=== PATIENT | female | born 2005 | race Caucasian/White ===

== ENCOUNTER 2025-08-10 20:33 | Emergency (ER) | payer OTHER, SELFPAY ==
--- OUTSIDE RECORDS SUMMARY | 2022-02-09 07:31 | XMS_ITS | Continuity of Care Document ---
Author Organization [facility] Address [address] [address] [place] [address] Care Team Providers Care Psychological Science Professor Name Role Phone [place], [place] Unavailable Unav ailable Procedures Procedure Date Ugi En Colono Advance Directives Directive Yes / No Effective Date File Name No Information Encounters Encounter Description Practice Location Reason(s) For Visit Diagnoses Date Provider Providers Copied on Encounter [facility], [address] [address], [place], [place], [id number], [facility] No Information [facility]. [address] [address], [place], [place], [id number], . tel:[phone] Referring Provider: Aurelio Smith MD, [address] [facility] [address], [place], [address] . tel:[phone] Family History Family Member Type Diagnosis Age At Onset No Information Payers Payer name Insurance type Covered constitution party ID Authoriza tion(s) No Information Social History Type Description Quantity Date Captured Comments Sex Female Smoking Status No Information Chief Complaint And Reason For Visit No Information Reason For Referral Reason For Referral No Information History Of Present Illness Encounter Date Complaint History Of Prese nt Illness No Information Functional Status Date Functional Assessmen t No Information Instructions Date Instruction Additional Infor mation No Information Assessments Type Assessment Date No Information Patient Care Teams Name Effective Dates (start - stop) Status Members No Information
--- OUTSIDE RECORDS SUMMARY | 2025-08-10 07:15 | XMS_ITS | Continuity of Care Document ---
Author Organization [facility] Address [address] [address] [place] [address] Phone Care Team Providers Care De Icer Installer Name Role Phone Arielle Massey Unavailable Unavailabl e Allergies, Adverse Reactions, Alerts Substance Reaction Status Criticality adhesive tape Rash Active No Information latex ItchingItching Active No Informatio n grass pollen Nasal congestion(severe) Active No Information Medications Medication Instructions Dosage Effective Dates (start - stop) Status Comments prednisone 20 mg tablet take 1 tablet by oral route the day prior and day of your Stelara injection - Active ondansetron HCl 4 mg tablet take 1 tablet by oral route every 8 hours as needed as needed for nausea 4 MG - Active Wezlana 90 mg/mL subcutaneous syringe inject 1 milliliter by subcutaneous route every 8 weeks 90 MG - Active ICD 10: K50.80. Biosimilar per insurance aspirin 81 mg tablet take 1 tablet by oral route every day 81 MG - Active nabumetone 500 mg tablet take 1 tablet by oral route 2 times every day 500 MG - Active magnesium 200 mg tablet take 1 capsule b y oral route every day 1 capsule - Active hydroxychloroquine 200 mg tablet take 1.5 tablet by oral route every day 300 MG - Active Claritin 10 mg tablet Take Claritin 10mg day before and day of infusion - Active Tylenol 325 mg tablet Take Tylenol 650mg PO half hour before infusion - Active Slow Release Iron 140 mg (45 mg iron) tablet,extended release take 1 tablet by oral route 2 times every day - Active Procedures Procedure Date Routine Serum Collection Offic/outpt E&m Estab Moderate Venofer Iv Infus Therap/dx-by Phys; To Iv Infus Therap/dx-by Phys; To Venofer Venofer Iv Infus Therap/dx-by Phys; To Iv Infus Therap/dx-by Phys; To Venofer Iv Infus Therap/dx-by Phys; To Venofer Routine Serum Collection Ugi Endo; W/bx 1/mx Level Iv-surg Path Gross/micro Esophagoscopy; Dx (separt Proc Offic/outpt E&m Estab Moderate Routine Serum Collection Routine Serum Collection Therap/dx Inj; Subq/im Colonoscopy Flex; W/bx 1/mx Level Iv-surg Path Gross/micro Offic/outpt E&m Estab Mod-hi 2 24 Routine Serum Collection Offic/outpt E&m Estab Low-mod Routine Serum Collection Offic/outpt E&m Estab Mod-hi 4 24 Stelara Infusion Iv Infus Therap/dx-by Phys; To 24 Routine Serum Collection Offic/outpt E&m Estab Mod-hi 2 24 Avsola IV Infusion Up To 1 Hour Avsola IV Infusion Up To 1 Hour Routine Serum Collection Avsola IV Infusion Up To 1 Hour Avsola IV Infusion Up To 1 Hour Routine Serum Collection Avsola IV Infusion Up To 1 Hour Routine Serum Collection Avsola IV Infusion Up To 1 Hour Routine Serum Collection Established Level 5 Routine Serum Collection Offic/outpt E&m Estab Mod-hi 2 23 Inflectra 10 mg IV Infusion Up To 1 Hour Methylpred Na Succinate-40 Mg 3 Each Add Seq IV Push, Non Chem Routine Serum Collection Subsqt Hosp-da E&m Minr Compl 3 Init Hosp-da E&m Mod Severity 3 Inflectra 10 mg IV Infusion Up To 1 Hour Routine Serum Collection Established Level 5 Init Hosp-da E&m Mod Severity 3 Subsqt Hosp-da E&m Sig Compl 3 Routine Serum Collection Inflectra 10 mg IV Infusion Up To 1 Hour Routine Serum Collection Routine Serum Collection IV Infusion Up To 1 Hour Inflectra 10 mg Routine Serum Collection Colonoscopy Flex; W/bx 1/mx Level Iv-surg Path Gross/micro Routine Serum Collection Routine Serum Collection Iv Infus Therap/dx-by Phys; To 22 Venofer Iv Infus Therap/dx-by Phys; To Venofer IV Infusion Up To 1 Hour Each Additional Hour Inflectra 10 mg Routine Serum Collection Iv Infus Therap/dx-by Phys; To Venofer Routine Serum Collection Routine Serum Collection Init Hosp-da E&m Mod Severity IV Infusion Up To 1 Hour Each Additional Hour Inflectra 10 mg IV Infusion Up To 1 Hour Each Additional Hour Inflectra 10 mg Established Level 5 Colonoscopy Flex; W/bx 1/mx Ugi Endo; W/bx 1/mx Level Iv-surg Path Gross/micro Special Stains; Grp I Microorg Offic/outpt E&m Estab Mod-hi 2 Advance Directives Directive Yes / No Effective Date File Name No Information Encounters Encounter Description Practice Location Reason(s) For Visit Diagnoses Date Provider Providers Copied on Encounter [facility] KASHMIR CHEATHAM [address] [address], [facility] [place], [id number], [place] tel:[phone] [facility] Crohn's disease of both small and large intestine without complications 5 Yariel Guzmán. [address] [facility], [address], [id number], [place]. tel:[phone] Referring Provider: Referral Self, USE FOR SELF REFERRALS. [facility] [place] [address] [address], [place], [id number], [place] tel:[phone] [facility] Abnormal MRI, pelvis 5 Sabrina Najera. [address] [facility], [facility] [address], [id number], [place]. tel:[phone] Offic/outpt E&m Estab Moderate [facility], [address] [address], [facility] [place], [address], [place] tel:[phone] [facility] GI Symptoms or Concerns (chief complaint) Crohn's disease of both small and large intestine without complications NauseaIron deficiency anemia, unspecified Nov-0 5 Yariel Guzmán. [address] [place] [address], [id number], [place]. tel:[phone] Referring Provider: Referral Self, USE FOR SELF REFERRALS. [facility], [address] [address], [facility] [place], [address], [place] tel:[phone] [facility] Crohn's disease of both small and large intestine without complications Oct-3 5 Tati Cody. [address] [place] [address], [id number], [place]. tel:[phone] [facility], [address] [address], [facility] [place], [address], [place] tel:[phone] [facility] [place] Crohn's disease of both small and large intestine without complications Oct-3 5 Patricio Ramos. [address] [place] [address], [id number], [place]. tel:[phone] Referring Provider: Montana Sanchez MD, [address] [place] [address], [address]. tel:[phone] [facility], [address] [address], [facility] [place], [address], [place] tel:[phone] [facility] Crohn's disease of both small and large intestine without complications Jun-2 5 Rosina Pritchard. [address] [place] [address], [id number], [place]. tel:[phone] Referring Provider: Montana Sanchez MD, [address] [place] [address], [address]. tel:[phone] [facility], [address] [address], [place], [address], [place] tel:[phone] [facility] [place] Crohn's disease of both small and large intestine without complications Oct-2 8 5 Eliza OCHOA Zack. [address] [facility], [facility] [address], [place], [place], [address], [place]. tel:[phone] Referring Provider: Montana Sanchez MD, [address] [facility] [address], [place], [address]. tel:[phone] [facility], [address] [address], [place], [address], [place] tel:[phone] [facility] [place] Crohn's disease of both small and large intestine without complications Jun- 5 Rick Doherty. [address] [facility], [facility] [address], [id number], [place]. tel:[phone] Referring Provider: Montana Sanchez MD, [address] [facility] [address], [place], [address]. tel:[phone] [facility], [address] [address], [place], [address], [place] tel:[phone] [facility] [place] Crohn's disease of both small and large intestine without complications Oct- 0 5 Tati Cody. [address] [facility], [facility] [address], [place], [address], [place]. tel:[phone] [facility], [address] [address], [place], [address], [place] tel:[phone] [facility] No Information Jun- 5 Tati Cody. [address] [facility], [facility] [address], [place], [id number], [place]. tel:[phone] [facility], [address] [address], [place], [address], [place] tel:[phone] [facility] Crohn's disease of both small and large intestine without complications Oct- 5 Joshua Laura. [address] [facility], [facility] [address], [place], [place], [address], [place]. tel:[phone] Referring Provider: Montana Sanchez MD, [address] [facility] [address], [place], [address]. tel:[phone] [facility], [address] [address], [place], [address], [place] tel:[phone] [facility] Crohn's disease of both small and lg int w/o complications Jun- 5 Joanne Mcfadden. [address] [facility], [facility] [address], [place], [address], [place]. tel:[phone] [facility], [address] [address], [place], [address], [place] tel:[phone] [facility] Crohn's disease of both small and lg int w/o complications 5 Tati Cody. [address] [facility], [facility] [address], [address], [place]. tel:[phone] [facility], [address] [address], [place], [address], [place] tel:[phone] [facility] Crohn's disease of both small and lg int w/o complications 5 Tati Cody. [address] [facility], [facility] [address], [place], [address], [place]. tel:[phone] Referring Provider: Referral Self, USE FOR SELF REFERRALS. [facility], [address] [address], [place], [address], [place] tel:[phone] [facility] Crohn's disease of both small and lg int w/o complications Jun- 5 Tati Cody. [address] [facility], [facility] [address], [id number], [place]. tel:[phone] Referring Provider: Referral Self, USE FOR SELF REFERRALS. [facility], [address] [address], [place], [address], [place] tel:[phone] [facility] No Information 5 Tati Cody. [address] [place] [address], [facility] [address], [place], [place], [id number], [place]. tel:[phone] [facility], [address] [address], [place], [id number], [place] tel:[phone] [facility] NauseaDyspeps iaNauseaEpiga stric pain 5 Chastity Blake. [address] [place] [address], [facility] [address], [place], [id number], [place]. tel:[phone] Fernando Daley DO. tel:[phone] lting Provider: Escobar Duffy MD, [address] [place] [address], [address]. tel:[phone] Provider: Montana Sanchez MD, [address] [place] [address], [address]. tel:[phone] [facility], [address] [address], [place], [id number], [place] tel:[phone] [facility] GI Symptoms or Concerns (chief complaint) NauseaDiarrhe a, unspecifiedDy sphagia, unspecified typeNauseaDia rrhea, unspecifiedDy sphagia, unspecified 5 Laura Boyle. [address] [place] [address], [facility] [address], [place], [place], [id number], [place]. tel:[phone] Referring Provider: Referral Self, USE FOR SELF REFERRALS. Offic/outpt E&m Estab Moderate [facility], [address] [address], [place], [id number], [place] tel:[phone] [facility] GI Symptoms or Concerns (chief complaint) Crohn's disease of both small and lg int w/o complications Diarrhea, unspecified typeNausea 5 Tati Cody. [address] [place] [address], [address], [id number], [place]. tel:[phone] Referring Provider: Referral Self, USE FOR SELF REFERRALS. [facility], [address] [address], [place], [id number], [place] tel:[phone] [facility] Crohn's disease of both small and large intestine with intestinal obstruction 5 Dionna Adamson. [address] [place] [address], [id number], [place]. tel:[phone] Referring Provider: Referral Self, USE FOR SELF REFERRALS. [facility], [address] [address], [place], [id number], [place] tel:[phone] [facility] Crohn's disease of both small and large intestine with intestinal obstruction 5 Laura Boyle. [address] [place] [address], [id number], [place]. tel:[phone] Referring Provider: Referral Self, USE FOR SELF REFERRALS. [facility], [address] [address], [place], [id number], [place] tel:[phone] [facility] Crohn's disease of both small and lg int w intestinal obst 5 Luis Wang. [address] [place] [address], [id number], [place]. tel:[phone] [facility], [address] [address], [place], [address], [place] tel:[phone] [facility] GI Symptoms or Concerns (chief complaint) Crohn's disease of both small and lg int w intestinal obstHistory of colon surgeryAphtho us ulcerRecurren t oral aphthaeOther specified postprocedura l statesNoninfe ctive gastroenterit is and colitis, unspecified 4 Laura Boyle. [address] [place] [address], [id number], [place]. tel:[phone] Referring Provider: Referral Self, USE FOR SELF REFERRALS. Offic/outpt E&m Estab Mod-hi 2 [facility] [place], [address] [address], [place], [id number], [place] tel:[phone] [facility] GI Symptoms or Concerns (chief complaint) Crohn's disease of both small and large intestine without complication 4 Luis Wang. [address] [place] [address], [id number], [place]. tel:[phone] Referring Provider: Referral Self, USE FOR SELF REFERRALS. [facility] [place], [address] [address], [place], [address], [place] tel:[phone] [facility] Crohn's disease of both small and lg int w/o complications Abnormal levels of other serum enzymes 4 Luis Wang. [facility] [address], [id number], [place]. tel:[phone] Referring Provider: Referral Self, USE FOR SELF REFERRALS. [facility] [place], [address] [address], [place], [address], [place] tel:[phone] [facility] Crohn's disease of both small and lg int w intestinal obst 4 Raul Desai. [address], [id number], [place]. tel:[phone] [facility], [address] [address], [place], [address], [place] tel:[phone] [facility] Crohn's disease of small intestine with intestinal obstructionCr ohn's disease of both small and lg int w intestinal obst 4 Saravanan Mcbride. [address], [id number], [place]. tel:[phone] [facility], [address] [address], [place], [address], [place] tel:[phone] [facility] Crohn's disease of both small and lg int w intestinal obst 4 Raul Desai. [address] [facility], [facility] [address], [place], [address], [place]. tel:[phone] [facility] [place], [address] [address], [place], [id number], [place] tel:[phone] [facility] GI Symptoms or Concerns (chief complaint) Crohn's disease of both small and lg int w intestinal obst 4 Portillo Camarillo. [address] [facility], [facility] [address], [place], [address], [place]. tel:[phone] Referring Provider: Referral Self, USE FOR SELF REFERRALS. Offic/outpt E&m Estab Low-mod [facility], [address] [address], [place], [id number], [place] tel:[phone] [facility] GI Symptoms or Concerns (chief complaint) Additional Narrative (chief complaint) Crohn's disease of both small and large intestine without complicationA dverse effect of drug, subsequent encounter 4 Raul ANAY Desai. [address], [id number], [place]. tel:[phone] Referring Provider: Referral Self, USE FOR SELF REFERRALS. [facility] [place], [address] [address], [place], [address], [place] tel:[phone] [facility] Family history of Sjogren's diseaseFamily history of lupus erythematosus 4 Saravanan Mcbride. [address] [facility], [address], [id number], [place]. tel:[phone] [facility] [place], [address] [address], [place], [address], [place] tel:[phone] [facility] Elevated alkaline phosphatase level 4 Darielaset RICKI Mcbride. [address] [facility], [address], [id number], [place]. tel:[phone] Offic/outpt E&m Estab Mod-hi 4 [facility], [address] [address], [place], [id number], [place] tel:[phone] [facility] GI Symptoms or Concerns (chief complaint) Crohn's disease of small intestine with intestinal obstruction 4 Saravanan Mcbride. [address] [facility], [facility] [address], [place], [address], [place]. tel:[phone] Referring Provider: Referral Self, USE FOR SELF REFERRALS. [facility] [place], [address] [address], [place], [address], [place] tel:[phone] [facility] No Information 4 Maulik Hawk. [address], [id number], [place]. tel:[phone] Referring Provider: Referral Self, USE FOR SELF REFERRALS. [facility] [place], [address] [address], [place], [address], [place] tel:[phone] [facility] [place] Crohn's disease of both small and lg int w intestinal obst 4 Dionna Adamson. [address] [facility], [address], [id number], [place]. tel:[phone] Offic/outpt E&m Estab Mod-hi 2 [facility] [place], [address] [address], [place], [id number], [place] tel:[phone] [facility] GI Symptoms or Concerns (chief complaint) Crohn's disease of both small and lg int w intestinal obstPsoriasis 4 Dionna Adamson. [address], [id number], [place]. tel:[phone] Referring Provider: Referral Self, USE FOR SELF REFERRALS. [facility] [place], [address] [address], [place], [address], [place] tel:[phone] [facility] Crohn's disease of both small and lg int w intestinal obst 4 Rosina Pritchard. [address], [id number], [place]. tel:[phone] Referring Provider: Referral Self, USE FOR SELF REFERRALS. [facility], [address] [address], [place], [address], [place] tel:[phone] [facility] Crohn's disease of both small and lg int w intestinal obst Dec-2 8 3 Dionna Adamson. [address], [id number], [place]. tel:[phone] [facility], [address] [address], [place], [address], [place] tel:[phone] [facility] Crohn's disease of both small and lg int w intestinal obst Dec-0 7 3 Tha Crain. [address], [id number], [place]. tel:[phone] Referring Provider: Referral Self, USE FOR SELF REFERRALS. [facility], [address] [address], [place], [address], [place] tel:[phone] [facility] Crohn's disease of both small and lg int w intestinal obst Dec-0 7 3 Luis Carey. [address], [id number], [place]. tel:[phone] Referring Provider: Referral Self, USE FOR SELF REFERRALS. [facility], [address] [address], [place], [address], [place] tel:[phone] [facility] Crohn's disease of both small and lg int w intestinal obst Nov-3 0 3 Dionna Adamson. [address] [facility] [address], [place], [address], [place]. tel:[phone] [facility], [address] [address], [place], [address], [place] tel:[phone] [facility] Crohn's disease of both small and lg int w intestinal obst Nov-2 0 3 Dionna Adamson. [address], [id number], [place]. tel:[phone] [facility], [address] [address], [place], [address], [place] tel:[phone] [facility] [place] Crohn's disease of both small and lg int w intestinal obst 3 Dionna Adamson. [address] [facility], [facility] [address], [place], [address], [place]. tel:[phone] [facility], [address] [address], [place], [address], [place] tel:[phone] [facility] Crohn's disease of both small and lg int w intestinal obst 3 Livia Malave. [address], [id number], [place]. tel:[phone] Referring Provider: Referral Self, USE FOR SELF REFERRALS. [facility], [address] [address], [place], [address], [place] tel:[phone] [facility] [place] Crohn's disease of both small and lg int w intestinal obst Jun-0 3 Dionna Adamson. [address] [facility] [address], [address], [place]. tel:[phone] [facility], [address] [address], [place], [address], [place] tel:[phone] [facility] Crohn's disease of both small and lg int w intestinal obst 3 Tha Crain. [address] [facility], [facility] [address], [place], [address], [place]. tel:[phone] Referring Provider: Referral Self, USE FOR SELF REFERRALS. [facility], [address] [address], [place], [address], [place] tel:[phone] [facility] Crohn's disease of both small and lg int w intestinal obst 3 Luis Carey. [address] [facility], [facility] [address], [place], [address], [place]. tel:[phone] Referring Provider: Referral Self, USE FOR SELF REFERRALS. [facility], [address] [address], [place], [address], [place] tel:[phone] [facility] Crohn's disease of both small and lg int w intestinal obst 3 Dionna Adamson. [address] [facility], [address], [id number], [place]. tel:[phone] [facility], [address] [address], [place], [address], [place] tel:[phone] [facility] [place] Crohn's disease of both small and lg int w intestinal obst 3 Chastity Blake. [address] [facility], [address], [id number], [place]. tel:[phone] Referring Provider: Referral Self, USE FOR SELF REFERRALS. [facility], [address] [address], [place], [address], [place] tel:[phone] [facility] Crohn's disease of both small and large intestine with intestinal obstruction 3 Luis Carey. [address] [facility], [facility] [address], [place], [address], [place]. tel:[phone] Referring Provider: Referral Self, USE FOR SELF REFERRALS. [facility], [address] [address], [place], [address], [place] tel:[phone] [facility] [place] Crohn's disease of both small and large intestine with intestinal obstruction 3 Dionna Adamson. [address] [facility], [facility] [address], [place], [address], [place]. tel:[phone] [facility], [address] [address], [place], [address], [place] tel:[phone] [facility] Crohn's disease of both small and large intestine with intestinal obstruction 3 Dionna Adamson. [address] [facility], [facility] [address], [address], [place]. tel:[phone] [facility], [address] [address], [place], [address], [place] tel:[phone] [facility] Crohn's disease of both small and lg int w intestinal obst 3 Dionna Adamson. [address] [facility], [facility] [address], [address], [place]. tel:[phone] [facility], [address] [address], [place], [address], [place] tel:[phone] [facility] Crohn's disease of both small and lg int w intestinal obst 3 Bucky Juares. [address] [facility], [address], [id number], [place]. tel:[phone] Referring Provider: Referral Self, USE FOR SELF REFERRALS. [facility], [address] [address], [place], [address], [place] tel:[phone] [facility] Crohn's disease of both small and lg int w intestinal obstCrohn's disease of small intestine w intestinal obstruction 3 Dionna Adamson. [address] [facility], [address], [id number], [place]. tel:[phone] [id number] Referring Provider: Referral Self, USE FOR SELF REFERRALS. [facility], [address] [address], [place], [address], [place] tel:[phone] [facility] Crohn's disease of both small and large intestine with intestinal obstruction 3 Dionna Adamson. [address] [facility], [facility] [address], [place], [address], [place]. tel:[phone] Established Level 5 [facility], [address] [address], [place], [address], [place] tel:[phone] [facility] GI Symptoms or Concerns (chief complaint) Crohn's disease of both small and large intestine with intestinal obstruction 3 Dionna Adamson. [address] [facility], [facility] [address], [place], [address], [place]. tel:[phone] Referring Provider: Referral Self, USE FOR SELF REFERRALS. [facility], [address] [address], [place], [id number], [place] tel:[phone] [facility] Crohn's disease of both small and lg int w intestinal obst 3 Dionna Adamson. [address] [facility], [facility] [address], [place], [address], [place]. tel:[phone] [facility], [address] [address], [place], [address], [place] tel:[phone] [facility] Crohn's disease of both small and large intestine with intestinal obstruction 3 Dionna Adamson. [address] [facility], [address], [id number], [place]. tel:[phone] [facility], [address] [address], [place], [address], [place] tel:[phone] [facility] Crohn's disease of both small and lg int w intestinal obst 3 Dionna Adamson. [address] [place] [address], [id number], [place]. tel:[phone] Offic/outpt E&m Estab Mod-hi 2 [facility], [address] [address], [place], [address], [place] tel:[phone] [facility] GI Symptoms or Concerns (chief complaint) Crohn's disease of small intestine with intestinal obstruction 3 Dionna Adamson. [address] [facility], [address], [id number], [place]. tel:[phone] Referring Provider: Referral Self, USE FOR SELF REFERRALS. [facility], [address] [address], [place], [id number], [place] tel:[phone] [facility] Crohn's disease of both small and lg int w intestinal obst 3 Bucky KAUR Mor. [address], [id number], [place]. tel:[phone] Referring Provider: Referral Self, USE FOR SELF REFERRALS. [facility], [address] [address], [place], [address], [place] tel:[phone] [facility] Crohn's disease of both small and lg int w intestinal obst 3 Luis Carey. [address], [id number], [place]. tel:[phone] Referring Provider: Referral Self, USE FOR SELF REFERRALS. [facility], [address] [address], [place], [address], [place] tel:[phone] [facility] Crohn's disease of both small and lg int w intestinal obst Nov- 3 Luis Wang. [address] [place] [address], [id number], [place]. tel:[phone] Subsqt Hosp-da E&m Minr Compl [facility], [address] [address], [place], [place], [address], [place] tel:[phone] [facility] No Information 3 Amilcar Holguin. [facility] [address], [id number], [place]. tel:[phone] Referring Provider: [place], [address] [place] [address], [address]. tel:[phone] Init Hosp-da E&m Mod Severity [facility], [address] [address], [place], [address], [place] tel:[phone] [facility] No Information 3 Raisa Rojas. [facility] [address], [address], [place]. tel:[phone] Referring Provider: Krishna Lopezrick, [address] [place], [address]. tel:[phone] [facility], [address] [address], [place], [address], [place] tel:[phone] [facility] Crohn's disease of both small and lg int w intestinal obst 3 Magdalena Pearce. [address] [facility], [address], [id number], [place]. tel:[phone] Referring Provider: Krishna Haney MD [place], [address] [place], [address]. tel:[phone] [facility], [address] [address], [place], [address], [place] tel:[phone] [facility] Crohn's disease of both small and large intestine with intestinal obstruction 3 Luis Wang. [address], [id number], [place]. tel:[phone] Referring Provider: Referral Self, USE FOR SELF REFERRALS. Established Level 5 [facility], [address] [address], [place], [address], [place] tel:[phone] [facility] GI Symptoms or Concerns (chief complaint) Crohn's disease of both small and large intestine with intestinal obstruction 3 Luis Carey. [address], [id number], [place]. tel:[phone] Referring Provider: Referral Self, USE FOR SELF REFERRALS. [facility], [address] [address], [place], [address], [place] tel:[phone] [facility] Crohn's disease of both small and large intestine with intestinal obstruction 3 Dionna Adamson. [address], [id number], [place]. tel:[phone] [facility], [address] [address], [place], [address], [place] tel:[phone] [facility] Crohn's disease of both small and lg int w intestinal obst 3 Luis Carey. [address] [facility], [address], [place], [place], [address], [place]. tel:[phone] [facility], [address] [address], [place], [place], [address], [place] tel:[phone] [facility] No Information 3 Dionna Adamson. [address] [facility], [facility] [address], [place], [address], [place]. tel:[phone] Referring Provider: Juan Diego Hall, [address], [address]. tel:[phone] [facility], [address] [address], [place], [address], [place] tel:[phone] [facility] Crohn's disease of both small and lg int w intestinal obst 3 Luis Carey. [address] [facility], [facility] [address], [place], [address], [place]. tel:[phone] Referring Provider: Referral Self, USE FOR SELF REFERRALS. [facility], [address] [address], [place], [address], [place] tel:[phone] [facility] Crohn's disease of both small and lg int w intestinal obst 3 Luis Carey. [address] [facility], [facility] [address], [place], [address], [place]. tel:[phone] [facility], [address] [address], [place], [address], [place] tel:[phone] [facility] Crohn's disease of both small and lg int w intestinal obst 2 Chastity Blake. [address] [facility], [facility] [address], [place], [address], [place]. tel:[phone] Referring Provider: Referral Self, USE FOR SELF REFERRALS. [facility], [address] [address], [place], [address], [place] tel:[phone] [facility] Crohn's disease of both small and lg int w intestinal obstCrohn's disease, unspecified, without complications 2 Luis Carey. [address] [facility], [facility] 500, [place], [place], [address], [place]. tel:[phone] Referring Provider: Referral Self, USE FOR SELF REFERRALS. [facility], [address] [address], [place], [address], [place] tel:[phone] [facility] Crohn's disease of both small and lg int w intestinal obst 2 Luis Carey. [address] [facility], [facility] [address], [place], [address], [place]. tel:[phone] [facility], [address] [address], [place], [address], [place] tel:[phone] [facility] Crohn's disease of both small and lg int w intestinal obst 2 Luis Carey. [address] [facility], [facility] [address], [place], [address], [place]. tel:[phone] Referring Provider: Referral Self, USE FOR SELF REFERRALS. [facility], [address] [address], [place], [address], [place] tel:[phone] [facility] Crohn's disease of both small and lg int w intestinal obst 2 Luis Carey. [address] [facility], [facility] [address], [place], [address], [place]. tel:[phone] [facility], [address] [address], [place], [address], [place] tel:[phone] [facility] Crohn's disease of both small and lg int w intestinal obst 2 Dionna Adamson. [address] [facility], [facility] 500, [place], [place], [address], [place]. tel:[phone] [facility], [address] [address], [place], [address], [place] tel:[phone] [facility] Crohn's disease of both small and lg int w intestinal obst Jun- 2 Cori Alfaro. [address], [id number], [place]. tel:[phone] Referring Provider: Referral Self, USE FOR SELF REFERRALS. [facility], [address] [address], [place], [address], [place] tel:[phone] [facility] Crohn's disease of both small and lg int w intestinal obst Jun- 2 Luis Carey. [address], [address], [place]. tel:[phone] Referring Provider: Referral Self, USE FOR SELF REFERRALS. [facility], [address] [address], [place], [address], [place] tel:[phone] [facility] GI Symptoms or Concerns (chief complaint) Crohn's disease of both small and lg int w intestinal obstIron deficiency anemia, unspecifiedCr ohn's disease of both small and lg int w intestinal obst Sep- 2 Luis Carey. [address], [id number], [place]. tel:[phone] Referring Provider: Referral Self, USE FOR SELF REFERRALS. [facility], [address] [address], [place], [address], [place] tel:[phone] [facility] Crohn's disease of both small and lg int w intestinal obst Sep- 2 Luis Carey. [address], [id number], [place]. tel:[phone] Referring Provider: Referral Self, USE FOR SELF REFERRALS. [facility], [address] [address], [place], [address], [place] tel:[phone] [facility] Crohn's disease of both small and lg int w intestinal obst Sep-0 2 Luis Carey. [address] [facility], [address], [id number], [place]. tel:[phone] Referring Provider: Referral Self, USE FOR SELF REFERRALS. [facility], [address] [address], [place], [address], [place] tel:[phone] [facility] Crohn's disease of both small and lg int w intestinal obst Sep-0 2 Luis Carey. [address], [id number], [place]. tel:[phone] [facility], [address] [address], [place], [address], [place] tel:[phone] [facility] Iron deficiency anemia, unspecified 2 Cori Alfaro. [address], [id number], [place]. tel:[phone] Fernando Edi DO. tel:[phone] ring Provider: Referral Self, USE FOR SELF REFERRALS. [facility], [address] [address], [place], [address], [place] tel:[phone] [facility] Crohn's disease of both small and lg int w intestinal obst Apr- 2 Luis Carey. [address], [id number], [place]. tel:[phone] Fernando Edi DO. tel:[phone] [facility], [address] [address], [place], [address], [place] tel:[phone] [facility] Iron deficiency anemia, unspecified 2 Jonh Pina. [address] [facility], [address], [address], [place]. tel:[phone] Fernando Edi DO. tel:[phone] ring Provider: Referral Self, USE FOR SELF REFERRALS. [facility], [address] [address], [place], [place], [address], [place] tel:[phone] [facility] Crohn's disease of both small and lg int w intestinal obst 2 Jonh Pina. [address] [facility], [address], [id number], [place]. tel:[phone] Fernando Daley DO. tel:[phone] ring Provider: Referral Self, USE FOR SELF REFERRALS. [facility], [address] [address], [place], [address], [place] tel:[phone] [facility] Crohn's disease of both small and lg int w intestinal obst 2 Luis Craey. [address], [id number], [place]. tel:[phone] Fernando Daley DO. tel:[phone] ring Provider: Referral Self, USE FOR SELF REFERRALS. [facility], [address] [address], [place], [address], [place] tel:[phone] [facility] Crohn's disease of both small and lg int w intestinal obst 2 Estefany Raymundo. [address], [id number], [place]. tel:[phone] [facility], [address] [address], [place], [address], [place] tel:[phone] [facility] Crohn's disease, unspecified, without complications 2 Cori Alfaro. [address] [facility], [address], [id number], [place]. tel:[phone] Fernando Daley DO. tel:[phone] ring Provider: Referral Self, USE FOR SELF REFERRALS. [facility], [address] [address], [place], [address], [place] tel:[phone] [facility] No Information 2 Luis Carey. [address] [facility], [facility] [address], [place], [address], [place]. tel:[phone] Referring Provider: Referral Self, USE FOR SELF REFERRALS. [facility], [address] [address], [place], [place], [address], [place] tel:[phone] [facility] Iron deficiency anemia, unspecified 2 Luis Carey. [address] [facility], [facility] [address], [place], [address], [place]. tel:[phone] Fernando Daley DO. tel:[phone] ring Provider: Referral Self, USE FOR SELF REFERRALS. Init Hosp-da E&m Mod Severity [facility], [address] [address], [place], [place], [address], [place] tel:[phone] [facility] Information 2 Chapincito Kay. [address] [facility], [facility] [address], [place], [address], [place]. tel:[phone] Referring Provider: Eliza Bennett, [address], [address]. tel:[phone] [facility], [address] [address], [place], [place], [address], [place] tel:[phone] [facility] Iron deficiency anemia, unspecified iron deficiency anemia type 2 Maral Deng. [address] [facility], [facility] 500, [place], [place], [address], [place]. tel:[phone] Fernando Daley DO. tel:[phone] [facility], [address] [address], [place], [place], [address], [place] tel:[phone] [facility] Crohn's disease of both small and lg int w intestinal obst 2 Magaly Kingsley. [address] [facility], [facility] [address], [place], [address], [place]. tel:[phone] Fernando Daley DO. tel:[phone] ring Provider: Referral Self, USE FOR SELF REFERRALS. [facility], [address] [address], [place], [address], [place] tel:[phone] [facility] Crohn's disease of both small and lg int w intestinal obstIron deficiency anemia, unspecified iron deficiency anemia type Billy 2 Luis Carey. [address] [facility], [facility] [address], [place], [address], [place]. tel:[phone] [facility], [address] [address], [place], [address], [place] tel:[phone] [facility] Iron deficiency anemia, unspecified iron deficiency anemia typeCrohn's disease of both small and lg int w intestinal obst 2 Luis Carey. [address] [facility], [address], [id number], [place]. tel:[phone] [facility], [address] [address], [place], [address], [place] tel:[phone] [facility] Crohn's disease of both small and lg int w intestinal obst 2 Ralph Perez. [address] [facility], [facility] [address], [place], [address], [place]. tel:[phone] Fernando Daley DO. tel:[phone] ring Provider: Referral Self, USE FOR SELF REFERRALS. [facility], [address] [address], [place], [address], [place] tel:[phone] [facility] Crohn's disease of both small and large intestine with intestinal obstruction 2 Luis Carey. [address] [facility], [facility] [address], [place], [address], [place]. tel:[phone] Established Level 5 [facility], [address] [address], [place], [address], [place] tel:[phone] [facility] GI Symptoms or Concerns (chief complaint) Crohn's disease of both small and large intestine with intestinal obstruction 2 Luis Carey. [address] [place] [address], [id number], [place]. tel:[phone] Fernando Daley DO. tel:[phone] ring Provider: Krishna Pritchard, [address] [place], [address]. tel:[phone] [facility], [address] [address], [place], [address], [place] tel:[phone] [facility] Crohn's disease of both small and large intestine with intestinal obstruction 2 No Information Fernando Daley DO. tel:[phone] [facility], [address] [address], [place], [address], [place] tel:[phone] [facility] GI Symptoms or Concerns (chief complaint) Other fecal abnormalities Abnormal weight lossAbnormal weight lossOther fecal abnormalities Crohn's disease, unspecified, without complications 2 Luis Carey. [address] [facility] [address], [place], [address], [place]. tel:[phone] Fernando Daley DO. tel:[phone] ring Provider: Krishna Pritchard, [address] [place], [address]. tel:[phone] Offic/outpt E&m Estab Mod-hi 2 [facility], [address] [address], [place], [address], [place] tel:[phone] [facility] GI Symptoms or Concerns (chief complaint) Weight lossLoose stools 2 No Information Referring Provider: Krishna Pritchard, [address] [place], [address]. tel:[phone] [facility], [address] [address], [place], [address], [place] tel:[phone] [facility] No Information 2 Adriano Portillo. [address] [facility], [address], [address], [place]. [phone] [facility], [address] [address], [place], [place], [address], [place] tel:[phone] [facility] No Information 1 Adriano Portillo. [address] [facility], [facility] [address], [place], [place], [address], [place]. [phone] Family History Family Member Type Diagnosis Age At Onset Mother Problem (finding) Alive and well Brother Problem (finding) Alive and well Brother Problem (finding) Alive and well Brother Problem (finding) Alive and well Father Problem (finding) Alive and well Immunizations Vaccine Date Status Comments SARS-COV-2 (COVID-19) vaccin e, mRNA, spike protein, LNP, preservative free, 30 mcg/0.3mL dose administered Note: [facility] bi-direct ional interface ; Source: Other Registry SARS-COV-2 (COVID-19) vaccin e, mRNA, spike protein, LNP, preservative free, 30 mcg/0.3mL dose administered Note: [facility] bi-direct ional interface ; Source: Other Registry SARS-COV-2 (COVID-19) vaccin e, mRNA, spike protein, LNP, preservative free, 30 mcg/0.3mL dose administered Note: [facility] bi-direct ional interface ; Source: Other Registry Payers Payer name Insurance type Covered constitution party ID Authoriza tion(s) [facility] [id number] Social History Type Description Quantity Date Captured Comments Alcohol Use Details Unknown Caffeine Use Details Unknown Tobacco Use Status No Information Smoking Status No Information Sex Female Chief Complaint And Reason For Visit No Information Reason For Referral Reason For Referral No Information Plan Of Treatment Date Type Action Status Goal Prevnar 20. Due on 25 due Goal Tdap. Due on due Goal Smoking status. Due on due Goal Influenza. Due on due Goal Vitamin D, 25-Hydroxy. Due o n due Goal HPV (1st). Due on due Goal Colonoscopy. Due on due Goal DEXA Bone Densit y Study. Due on due Goal HPV (2nd). Due on due Goal Dermatology - Sk in Screening. Due on due Goal HPV (3rd). Due on due Goal Smoking status. Due on due Goal Dermatology - Sk in Screening. Due on due Goal DEXA Bone Densit y Study. Due on due Goal Tdap. Due on due Goal Colonoscopy. Due on 025 due Goal Influenza. Due on due Goal HPV (3rd). Due on due Goal Prevnar 20. Due on 25 due Goal HPV (1st). Due on due Goal Vitamin D, 25-Hydroxy. Due o n due Goal HPV (2nd). Due on due Goal HPV (2nd). Due on due Goal Dermatology - Sk in Screening. Due on due Goal HPV (3rd). Due on due Goal DEXA Bone Densit y Study. Due on due Goal Colonoscopy. Due on due Goal Tdap. Due on due Goal Influenza. Due on due Goal Vitamin D, 25-Hydroxy. Due o n due Goal Prevnar 20. Due on due Goal Smoking status. Due on due Goal HPV (1st). Due on due Goal DEXA Bone Densit y Study. Due on due Goal Tdap. Due on due Goal HPV (1st). Due on due Goal Dermatology - Sk in Screening. Due on due Goal Vitamin D, 25-Hydroxy. Due o n due Goal HPV (2nd). Due on due Goal Influenza. Due on due Goal Smoking status. Due on due Goal Colonoscopy. Due on due Goal Prevnar 20. Due on due Goal HPV (3rd). Due on due Goal HPV (3rd). Due on due Goal Vitamin D, 25-Hydroxy. Due o n due Goal Prevnar 20. Due on due Goal Dermatology - Sk in Screening. Due on due Goal HPV (2nd). Due on due Goal HPV (1st). Due on due Goal Tdap. Due on due Goal Influenza. Due on due Goal DEXA Bone Densit y Study. Due on due Goal Colonoscopy. Due on due Goal Smoking status. Due on due Goal Influenza. Due on due Goal HPV (3rd). Due on due Goal Prevnar 20. Due on due Goal Colonoscopy. Due on due Goal HPV (1st). Due on due Goal Vitamin D, 25-Hydroxy. Due o n due Goal Dermatology - Sk in Screening. Due on due Goal HPV (2nd). Due on due Goal Tdap. Due on due Goal Smoking status. Due on due Goal DEXA Bone Densit y Study. Due on due Goal Dermatology - Sk in Screening. Due on due Goal Colonoscopy. Due on due Goal DEXA Bone Densit y Study. Due on due Goal HPV (1st). Due on due Goal HPV (2nd). Due on due Goal Vitamin D, 25-Hydroxy. Due o n due Goal HPV (3rd). Due on due Goal Smoking status. Due on due Goal Tdap. Due on due Goal Prevnar 20. Due on due Goal Influenza. Due on due Goal HPV (1st). Due on due Goal HPV (2nd). Due on due Goal HPV (3rd). Due on due Goal Tdap. Due on due Goal Colonoscopy. Due on due Goal Vitamin D, 25-Hydroxy. Due o n due Goal Influenza. Due on due Goal Prevnar 20. Due on due Goal Dermatology - Sk in Screening. Due on due Goal Smoking status. Due on due Goal DEXA Bone Densit y Study. Due on due Goal HPV (). Due on due Goal Smoking status. Due on due Goal Vitamin D, 25-Hydroxy. Due o n due Goal Colonoscopy. Due on due Goal Prevnar 20. Due on due Goal DEXA Bone Densit y Study. Due on due Goal Influenza. Due on due Goal Dermatology - Sk in Screening. Due on due Goal Tdap. Due on due Goal HPV (3rd). Due on due Goal HPV (2nd). Due on due Goal HPV (2nd). Due on due Goal Vitamin D, 25-Hydroxy. Due o n due Goal Prevnar 20. Due on due Goal DEXA Bone Densit y Study. Due on due Goal Smoking status. Due on due Goal Colonoscopy. Due on due Goal Dermatology - Sk in Screening. Due on due Goal Influenza. Due on due Goal Tdap. Due on due Goal HPV (3rd). Due on due Goal HPV (1st). Due on due Goal HPV (1st). Due on due Goal Vitamin D, 25-Hydroxy. Due o n due Goal Prevnar 20. Due on due Goal Dermatology - Sk in Screening. Due on due Goal Colonoscopy. Due on due Goal Tdap. Due on due Goal HPV (3rd). Due on due Goal HPV (2nd). Due on due Goal DEXA Bone Densit y Study. Due on due Goal Smoking status. Due on due Goal Tdap. Due on due Goal Vitamin D, 25-Hydroxy. Due o n due Goal Colonoscopy. Due on due Goal HPV (2nd). Due on due Goal Dermatology - Sk in Screening. Due on due Goal Prevnar 20. Due on due Goal HPV (3rd). Due on due Goal DEXA Bone Densit y Study. Due on due Goal Smoking status. Due on due Goal HPV (1st). Due on due Goal Prevnar 20. Due on due Goal HPV (2nd). Due on due Goal HPV (3rd). Due on due Goal Vitamin D, 25-Hydroxy. Due o n due Goal Tdap. Due on due Goal HPV (1st). Due on due Goal Smoking status. Due on due Goal DEXA Bone Densit y Study. Due on due Goal Colonoscopy. Due on due Goal Dermatology - Sk in Screening. Due on due Goal Smoking status. Due on due Goal HPV (1st). Due on due Goal Prevnar 20. Due on due Goal HPV (2nd). Due on due Goal Tdap. Due on due Goal Colonoscopy. Due on due Goal Dermatology - Sk in Screening. Due on due Goal HPV (3rd). Due on due Goal DEXA Bone Densit y Study. Due on due Goal Vitamin D, 25-Hydroxy. Due o n due Goal Dermatology - Sk in Screening. Due on due Goal Smoking status. Due on due Goal Vitamin D, 25-Hydroxy. Due o n due Goal Prevnar 20. Due on due Goal HPV (2nd). Due on due Goal HPV (1st). Due on due Goal Colonoscopy. Due on 025 due Goal HPV (3rd). Due on due Goal Tdap. Due on due Goal DEXA Bone Densit y Study. Due on due Goal Vitamin D, 25-Hydroxy. Due o n due Goal Dermatology - Sk in Screening. Due on due Goal HPV (2nd). Due on due Goal Prevnar 20. Due on due Goal Colonoscopy. Due on 025 due Goal HPV (1st). Due on due Goal HPV (3rd). Due on due Goal DEXA Bone Densit y Study. Due on due Goal Smoking status. Due on due Goal Tdap. Due on due Goal Dermatology - Sk in Screening. Due on due Goal DEXA Bone Densit y Study. Due on due Goal HPV (2nd). Due on due Goal HPV (3rd). Due on due Goal Vitamin D, 25-Hydroxy. Due o n due Goal Smoking status. Due on due Goal Tdap. Due on due Goal Prevnar 20. Due on due Goal HPV (1st). Due on due Goal Colonoscopy. Due on due Goal HPV (2nd). Due on due Goal Tdap. Due on due Goal DEXA Bone Densit y Study. Due on due Goal Prevnar 20. Due on due Goal HPV (1st). Due on due Goal HPV (3rd). Due on due Goal Smoking status. Due on due Goal Dermatology - Sk in Screening. Due on due Goal Vitamin D, 25-Hydroxy. Due o n due Goal Prevnar 20. Due on due Goal HPV (2nd). Due on due Goal Vitamin D, 25-Hydroxy. Due o n due Goal Tdap. Due on due Goal Dermatology - Sk in Screening. Due on due Goal HPV (3rd). Due on 4 due Goal HPV (1st). Due on due Goal Smoking status. Due on due Goal DEXA Bone Densit y Study. Due on due Goal Smoking status. Due on due Goal HPV (1st). Due on 4 due Goal HPV (2nd). Due on due Goal Colonoscopy. Due on due Goal Dermatology - Sk in Screening. Due on due Goal DEXA Bone Densit y Study. Due on due Goal HPV (3rd). Due on 4 due Goal Vitamin D, 25-Hydroxy. Due o n due Goal Tdap. Due on due Goal Prevnar 20. Due on 24 due Goal HPV (3rd). Due on 4 due Goal HPV (2nd). Due on 4 due Goal HPV (1st). Due on 4 due Goal Tdap. Due on due Goal Vitamin D, 25-Hydroxy. Due o n due Goal Dermatology - Sk in Screening. Due on due Goal Prevnar 20. Due on 24 due Goal DEXA Bone Densit y Study. Due on due Goal Smoking status. Due on due Referral Ordered: Ultrasound Pelvis Appointment date/timeframe: First Available ordered Referral Ordered: [facility]GB, Whole Blood Appointment date/timeframe: 08/16/2025 ordered Referral Ordered: referred to Rheumatology family history of lupus and Sjogren's ordered Referral Ordered: GGT Appointment date/timeframe: First Available ordered Referral Ordered: referred to Mik Fletcher MD Surgery - Pediatric Ileocecectomy. Appointment date/timeframe: 11/14/2022 ordered Referral Ordered: HGB Appointment date/timeframe: First Available ordered Referral Ordered: Infliximab Drug + Antibody Appointment date/timeframe: 05/26/2022 ordered Referral Ordered: Administer 100mg of Venofer by IV route over at least 15 minutes, every 2 weeks for 3 doses. ordered Referral Ordered: Administer Inflectra 500mg at weeks 0, 2 and 6. Infuse by IV route. ordered Referral Ordered: Colonoscopy Appointment date/timeframe: 01/26/2022 ordered Referral Ordered: EGD Appointment date/timeframe: 01/26/2022 ordered Appointment Jaclyn Kennedy BOOKED Future Order: Lab Order Ustekinu mab And Anti-Ustekinumab Ab ([id number]), Body Site: Left Antecubital Fossa, Appointment on: , Collected on: , Sent on: Sent Future Order: Lab Order Sukhwinder sharma ([id number]), Collected on: Ordered History Of Present Illness Encounter Date Complaint History Of Prese nt Illness GI Symptoms or Concerns This is a 19-year-old female with Crohn's ileocolitis diagnosed in 2021, status post ileocecectomy in 2022 iron deficiency anemia, currently on Stelara every 8 weeks presenting for evaluation of nausea.Patient reports she has been struggling with nausea intermittently for approximately 6 to 8 months. Has been progressing as of late. Her nausea tends to come on after meals. She does not typically throw up. She has been limiting her oral intake as a result and notes some unintentional weight loss. She did try Zofran which does help her nausea. She denies any right upper quadrant abdominal pain. LFTs have been normal as of 06/29/2025. Celiac serology negative. No clear infectious symptoms such as fever, chills. She does tend towards having loose stool since her ileocecectomy in 2022.She did undergo an upper endoscopy for further evaluation. Initial attempt at EGD on 04/16/2025 had to be canceled due to retained food in the stomach. She reports that she was fasting for 12 hours before that exam. Repeat EGD the next day showing normal esophagus, normal stomach, normal duodenum. Duodenal and gastric biopsies were unremarkable.Patient denies significant abdominal pain but mentions occasional right lower quadrant discomfort. An MR enterography was recommended in February 2025 at her last visit but she has not completed this.IBD historyCrohn's ileocolitis in January 2022 after presenting with weight loss and diarrhea and anemia and fatigue and erythema nodosum. -- January 2022, colonoscopy showed inflammation of the terminal ileum with stenosis of the ileocecal valve as well as some inflammation in the cecum and sigmoid colon. -- May 2022, colonoscopy showed improvement in inflammation with the terminal ileum showing some slight erythema-- May 2024, colonoscopy 2 aphthous ulcers at the ileocolonic anastomosis otherwise the ileum and colon appeared normal. Biopsies of the ileum showed mild focal active ileitis and biopsy of the ileocolonic anastomosis showed nonspecific mildly active chronic ileitis and colitis but the remainder of the random colon biopsies were normal. 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 She continues on hydroxychloroquine. -- Iron deficiency anemia. Patient has been receiving IV iron infusions. GI Symptoms or Concerns GI Symptoms or Concerns Patient is a 19-year-old female who is here for follow-up of Crohn's disease. Her mother is also present at the visit. She was last seen by Dr. Felipe Smith in March 2024. She was diagnosed with Crohn's ileocolitis in January 2022 after presenting with weight loss and diarrhea and anemia and fatigue and erythema nodosum. Colonoscopy showed inflammation of the terminal ileum with stenosis of the ileocecal valve as well as some inflammation in the cecum and sigmoid colon. She was treated with infliximab starting in February 2022 and a subsequent colonoscopy in May 2022 showed improvement in inflammation with the terminal ileum showing some slight erythema. In early 2022 she was hospitalized at [facility] with a small bowel obstruction secondary to ileitis and had an ileocecectomy in October 2022. She reports she has had diarrhea/loose stools since her surgery. Remicade was resumed postoperatively but she developed skin rashes and alopecia in June 2023 that was thought secondary to a drug-induced lupus so infliximab was discontinued in early 2023. She then started Stelara in October 2023. She had some facial swelling and some throat symptoms after the Stelara induction so has been maintained on premeds with 20 mg prednisone and Claritin prior to Stelara injections. She reports she still continues to have 2-5 watery bowel movements per day as well as intermittent nausea and occasional right lower quadrant abdominal pain. She denies any vomiting or rectal bleeding or weight loss or rectal urgency. She has not liked taking colestipol because it is difficult for her to separate the colestipol from her other medications. She has not tried any Imodium for her diarrhea. I reviewed her labs from December 19, 2024 including a CBC and LFTs that were significant for a total bilirubin of 1.3, and AST of 81, and ALT of 79. She reports that she had recent repeat LFTs that were back to normal. Her vitamin D level was normal in March 2024. Vitamin B12 level was normal in November 2023. A TSH was normal in November 2023. She had a colonoscopy in May 2024 and there were 2 aphthous ulcers at the ileocolonic anastomosis otherwise the ileum and colon appeared normal. Biopsies of the ileum showed mild focal active ileitis and biopsy of the ileocolonic anastomosis showed nonspecific mildly active chronic ileitis and colitis but the remainder of the random colon biopsies were normal. Patient has CT scan of the abdomen and pelvis in March 2023 that did not show any evidence of active bowel inflammation. Patient reports that her bookmobile librarian plans on discontinuing azathioprine 50 mg daily soon and they are also decreasing her hydroxychloroquine dose and they are planning on starting her on olumiant for her alopecia. This appears to be a Prem inhibitor. GI Symptoms or Concerns GI Symptoms or Concerns Jaclyn is a 18-year-old female, who is seen in the clinic today for followup of Crohn's ileocolitis. She was last seen in the clinic for this problem by Rae Coe NP on December 13, 2023. Please refer to that note for additional details.Jaclyn was diagnosed with Crohn's ileocolitis in January 2022 after presenting with weight loss, diarrhea, anemia, fatigue, erythema nodosum. Colonoscopy had shown inflammation in the terminal ileum with stenosis of the IC valve as well as some inflammation in the cecum and sigmoid colon. She was treated with infliximab starting February 2022 and subsequent colonoscopy in May 2022 did result in improvement in inflammation with the terminal ileum appearing normal/only slightly erythematous.However, in early 2022, she was hospitalized at [facility] with a small bowel obstruction secondary to ileitis and underwent an ileocecectomy in October 2022. Remicade infusions were resumed postoperatively, but unfortunately, she deve GI Symptoms or Concerns GI Symptoms or Concerns Additional Narrative This is a samara joshi 18-year-old female with ileocolonic Crohn's disease who presents today for her Stelara injection teaching visit. She was previously on infliximab but developed a rash and therefore it was discontinued. the patient received her 1st dose of Stelara via infusion on October 30. There was concern for possible reaction with scratchy sensation in her throat. She presented to an emergency room and was given oral Benadryl and observe. There was also report of her having allergy shots either the day before on the morning of her Stelara infusion. Based on these events, the patient was advised to take prednisone yesterday and today and she has been taking Claritin as well. There was a slight delay in the patient getting her Stelara injection due to a recent right ear infection. She was treated with antibiotics and reports having improvement. The patient and I reviewed guidelines for these Stelara injection. the patient was able to self administer 90 milligrams of Stelara into the right anterior thigh. She was observed directly for roughly 25 minutes and did not exhibit any sign of adverse reaction. She will be kept at the clinic for an additional hour for observation. CBC and CMP were drawn December 13, 2023. GI Symptoms or Concerns This is a 18-year-old patient I am seeing today in follow-up regarding ileal colonic Crohn's disease. Her mother is with her today. The patient was diagnosed with Crohn's disease in January of 2022 when she presented with weight loss, diarrhea, anemia. The exam showed inflammation and erythema in the ileum with stenosis of the ileocecal valve, erythema and granularity in the sigmoid. An upper endoscopy showed a normal esophagus, stomach, and duodenal. Biopsies of the ileum showed mildly active chronic ileitis consistent with Crohn's negative for dysplasia, cecal biopsy showed focal active colitis favor middle melena involvement from Crohn's, hepatic, splenic, sigmoid biopsies were normal. Esophageal, stomach, duodenal biopsies were also normal. The patient was started on infliximab in February 2022. She also required IV iron for iron deficiency anemia. A colonoscopy in May 2022 was normal with the exception of some mild erythema in the ileum.In early 2022 she was hospitalized at [facility] with abdominal pain and vomiting. A CT scan showed possible bowel obstruction and ileitis. She received IV steroids and improved. She underwent an elective ileocecectomy in October 2022. Remicade infusions continued. In approximately June 2023 the patient developed dermatitis involving her hands, scalp. As well as alopecia. It was felt that this is possibly due to infliximab, this was a decision in collaboration with our estimator and drafter. She did receive oral steroids in late 2022 and early 2023 for her skin lesions. It was decided to switch her from infliximab to Stelara. She received her 1st infusion October 30, 2023. The patient had a reaction shortly after leaving the infusion center on October 30. Symptoms include facial swelling and a funny feeling in her throat. She went to the emergency room those records are reviewed the patient was given oral Benadryl, she was observed for approximately 12 hours and was discharged. Patient believes she had an allergy shot either the day before or the morning of her Stelara infusion, though she has not certain. In follow-up today she reports persistent dermatitis involving her arms and hands. She is receiving photo light therapy that has not helped yet. She continues to have hair loss. She feels that this may have plateaued. I have records from dermatology dated September 06, 2023: Patient was started on prednisone and fluconazole for possible fungal involvement. Office visit October 08, 2023 she was diagnosed with tinea corpus at that time an antifungal creams were recommended. A skin culture was done which showed no growth. Keflex was prescribed at that time.In regards to her GI symptoms, she is eating well, denies dysphagia. She has occasional nausea but no vomiting. She uses Zofran intermittently. She is having 3-5 loose stools daily. There is mild urgency, no bleeding, no nocturnal stools. Her weight is stable. GI Symptoms or Concerns I had a followup today with Jaclyn Mcnealler and her mother. Jaclyn is now 18 years old who was diagnosed with Crohn's ileocolitis several years ago. She was quite ill in late 2021 and had to have a resection of the strictured area and has remained on infliximab since then. Over the last year, she has done very well. Looking back over her laboratories, she has had really good laboratories and no major flare-ups that we can recall during 2022. Overall, she is stooling daily. No blood in her stool. No abdominal pain. Weight has been stable and from a GI perspective, everything is in remission.Jaclyn's biggest issue recently has been a dermatitis. She has very itchy hands. She has itchy scalp. She is having some alopecia that is forming on her head with dry flaky skin. They did see a estimator and drafter to give them steroids recently and actually had her on prednisone, which did help, but it is unclear whether she is being given the diagnosis of psoriasis or not. GI Symptoms or Concerns I had a followup today with Jaclyn Marcia and her mother. Jaclyn is now 17 years old. Her mom still is very helpful with communication because of Jaclyn's autism spectrum issues. In any event, Jaclyn was diagnosed back in December or January of 2022 with Crohn's disease. She presented with abdominal pain, weight loss, and anemia, and was found to have Crohn's of both colon and small bowel with some fibrostenotic changes in her ileum. She was started on steroids, which helped her initially and then she also got onto Remicade in February. There was some initial improvement, but she really did struggle through summer and fall with ongoing pain and also fairly significant anemia requiring iron infusions, as the biologics were still taking effect. As the year went on, it became clear that she was never quite getting into a complete remission despite being on the 10 per kilo Remicade every 8 weeks. In September, she was hospitalized at [facility] with obstruction. She did IV steroids, which did help some, but within weeks she was having symptoms again and she had an ileocecectomy completed by Dr. Mik Fletcher soon thereafter. We hope that a lot of her symptoms would improve after that. She has had less pain in that particular area, but she has continued to have a lot of nausea, a lot of pain, and some just general malaise that in retrospect has never really cleared up. Jaclyn does not feel like she is better right after her Remicade infusions. In fact, the emphasis of today's discussion was that she really feels like she is almost back where everything started last year. GI Symptoms or Concerns I had fo llowup today with Jaclyn Kennedy and her mom, Jaclyn is an 17-year-old, who was diagnosed last year with Crohn's disease. Her last office visit in September [address] Smith was conducted virtually and she had been hospitalized with acute onset of abdominal pain, bilious emesis, and a CT scan had shown ileitis and possible small bowel obstruction. There was question about a fluid collection in the area where it could represent an abscess, but the consensus was that it was more of a tight ileum with ileitis without an abscess. She responded to conservative management and IV steroids and got rest and after the follow up visit, it was clear that she would need steroid taper, but also referral to surgery for ileocecectomy. She saw Dr. Rivera the first week of October with the plan for surgery and wanted her steroids tapered down prior to the surgery itself, which was ultimately completed on November 08. The surgery itself went well with removal of the inflamed segment an GI Symptoms or Concerns Jaclyn is an 17-year-old female with fibrostenosing ileocolonic Crohn's disease who presents today in follow-up telehealth evaluation along with her parents.She was recently hospitalized at [facility] with acute onset of abdominal pain and bilious emesis. A CT scan of the abdomen was obtained that showed ileitis and possible small bowel obstruction. There was some question about a fluid collection around the area that could represent an abscess. However, on further evaluation with surgery and interventional Radiology, the consensus was that it most likely represented a tight ileum with ileitis without any abscess.She responded to conservative management with intravenous steroids and gut rest. A follow-up visit was arranged today to review findings and discuss further management.Her initial consultation was with my colleague, Heavenly Castillo, on 12/26/2021 when she presented with abdominal discomfort, loss of appetite, passage of foul smelling stools and unintentional weight loss of 35-40 lbs. Initial laboratory studies were notable for elevated sedimentation rate of 26, as well as evidence of iron deficiency anemia with a hemoglobin of 11.8, and MCV 77. Albumin was slightly low at 3.1. C-reactive protein was 0.75. She was seen by Hematology and started on iron pills 45 mg twice daily. Fecal calprotectin was elevated at 973. Fecal occult blood was positive.She underwent an upper endoscopy and colonoscopy evaluation on 02/09/2022. On colonoscopy, she was noted to have stenosed ileocecal valve and the terminal ileum could not be intubated. Biopsies were obtained and were consistent with mild active chronic ileitis with non-necrotizing granuloma failing Crohn's disease. Biopsies from the cecum also showed focal active colitis. The remainder of the colon biopsies were unremarkable. Biopsies from the esophagus, stomach, and duodenum were unremarkable as well.Following the endoscopy and colonoscopy, she was started on prednisone. An MR enterography study was obtained that was consistent with colonoscopy findings. There was thickening and hyperenhancement of the terminal ileum and distal ileum without any complications such as strictures, fistulas, or abscesses. Because of the fibrostenotic nature of her disease, she was started on Inflectra 10 milligram/kilogram per dose. As part of the disease monitoring, laboratory studies were obtained and hemoglobin was noted to be low at 6.9 after which, she was hospitalized at [facility] in March 2022. Her iron studies were also noted to be abnormal with a ferritin of 7. She was treated with intravenous Venofer that was also continued as an outpatient.A repeat colonoscopy evaluation was done on 06/01/2022. The colon was normal appearing visually. The terminal ileum was noted to be erythematous and friable. On repeat colonoscopy, the ileocecal valve could be intubated. Biopsies from the terminal ileum showed inactive chronic ileitis consistent with Crohn's disease. Colon biopsies were unremarkable.She was maintained on Inflectra 10 milligram/kilogram per dose every 8 weeks with periodic monitoring of her laboratory studies. Repeat laboratory studies in July and August 2022 were unremarkable with a hemoglobin of 12.8. Comprehensive metabolic panel was also within normal limits. Inflammatory rtjssam-U-mdtiriof protein and sedimentation rate were unremarkable. On the differential count, I had noted that there was progressive decline of her absolute neutrophil counts. Hematology was consulted and additional laboratory studies were done that were negative for anti neutrophilic cytoplasmic antibodies. Vitamin B12, folate and copper levels were unremarkable. Infliximab levels in May 2022 were therapeutic at 20 mcg/mL with undetectable antibodies. These were repeated at her most recent hospitalization and were noted to be at 31 mcg/mL (most recent infusion was on 08/22/2022). Repeat CBC at [facility] was normal. The mother also reports that Jaclyn has had symptoms of tingling/numbness on the tips of her fingers. She is aware that this could likely be secondary to Raynaud's phenomenon as her sister has similar symptoms as well.The mother reports that at the time of the discharge from the hospital, she was given a prescription for prednisone 40 mg twice daily.PAST MEDICAL HISTORY-fibrostenotic ileocolonic Crohn's diseaseFAMILY HISTORYThere is substantial autoimmune history in the family. Multiple family members have lupus. Mom has Sjogren's syndrome.PERSONAL/SOCIAL HISTORY-she lives in a nuclear household GI Symptoms or Concerns GI Symptoms or Concerns This is a followup telehealth evaluation. Jaclyn is an almost 17-1/2-year-old female who was recently diagnosed with fibrostenosing ileocolonic Crohn's disease. Her initial consultation was with my colleague, Heavenly Castillo, on 12/26/2021 when she presented with abdominal discomfort and unintentional weight loss. It appears that she had lost about 35 to 40 pounds over a span of 5 months. She also had reported loss of appetite as well as passage of small foul-smelling stools. Laboratory studies were done and showed an elevated sedimentation rate of 26, as well as evidence of iron deficiency anemia with a hemoglobin of 11.8, and MCV 77. Albumin was slightly low at 3.1. C-reactive protein was 0.75. She was seen by Hematology and started on iron pills 45 mg twice daily.Additional workup was ordered and included a fecal calprotectin that was elevated at 973. Fecal occult blood was positive.She underwent an upper endoscopy and colonoscopy evaluation. On colonoscopy, she was noted to have stenosed ileocecal valve and the terminal ileum could not be intubated. Biopsies were obtained and were consistent with mild active chronic ileitis with non-necrotizing granuloma failing Crohn's disease. Biopsies from the cecum also showed focal active colitis. The remainder of the colon biopsies were unremarkable. Biopsies from the esophagus, stomach, and duodenum were unremarkable as well.Following the endoscopy and colonoscopy, she was started on prednisone. An MR enterography study was obtained that was consistent with colonoscopy findings. There was thickening and hyperenhancement of the terminal ileum and distal ileum without any complications such as strictures, fistulas, or abscesses. Disaccharidase testing was unremarkable. Additional laboratory studies were ordered and she was noted to have normal 6-MP levels. Hepatitis B test was negative. QuantiFERON was also ordered and is currently pending.The followup visit was arranged to review the pathophysiology of Crohn's disease and long-term management.FAMILY HISTORYThere is substantial autoimmune history in the family. Multiple family members have lupus. Mom has Sjogren's syndrome. GI Symptoms or Concerns GI Symptoms or Concerns Jaclyn is 16-year-old female, presents with her mother for ongoing issues of abdominal discomfort and unintentional weight loss. She is a new patient, referred to us by Krishna Haney MD after having food sensitivities, unintentional weight loss, she does also have anxiety. She noticed in the end of 2019 that her weight had been decreasing without intentional weight loss. Family believes that she weighed upwards of 160 pounds. Today in clinic, she is 108 pounds, but also states that she lost about 35 to 40 pounds in the span of 5 months. She often will eat and not feel well. She states she does not feel like she can digest food. She often will have small foul-smelling stools. She did have some blood work done and she was also referred to Hematology, who also did additional laboratory evaluation at [facility]. She had a celiac screen that was negative, although she has had intermittent times where she eats low-gluten or gluten-free. She also had inflammatory markers that showed Functional Status Date Functional Assessmen t No Information Instructions Date Instruction Additional Infor melissa - Labs as ordered- S tool infectious studies- Continue Stelara 90 mg subcutaneously every 8 weeks with premeds. Patient reports that she has had some issues with Stelara coverage with her insurance. Will have our Biologics counselors look into this.-I advised patient to discuss the Stelara and the olumiant further with her bookmobile librarian as being on both medications together may be risky as they both affect the immune system.- If stool studies are negative for infection, the patient can use [id number] Imodium 1 to 2 pills every 6 hours as needed for diarrhea that may be related to her prior ileal resection- Avoid NSAIDs- MR enterography to reassess Crohn's disease activity- EGD with gastric and duodenal biopsies for further evaluation of her nausea- Follow-up with Dr. Felipe Smith in 3 months Related to Crohn's disease of both small and lg int w/o complications Colon Cancer Prevention Related to Crohn's disease of both small and lg int w intestinal obst 1. Continue Stelara 90 mg every 8 weeks. She will continue taking premedications as she has been doing.2. Colonoscopy in 2 months to confirm mucosal healing/reassess disease activity.3. We will start colestipol for treatment of possible bile acid diarrhea.4. Health maintenance issues as above.5. Continue followup with Rheumatology for treatment of lupus.Follow up in 3 months or so for continued management based on colonoscopy findings. Related to Crohn's disease of both small and large intestine without complication -You completed your first Stelara injection today. You will be due for Stelara 90mg in 8 weeks. You will need to take Prednisone one day prior and on the day of your injection along with Claritin given possible/questionable adverse reaction after the Stelara infusion (could have been related to allergy shots)-You will be due for labs May 2024-Follow up with Dr Smith 04/02/24 as planned. Call or send a portal message with questions or concerns [phone] Related to Crohn's disease of both small and large intestine without complication Jaclyn, it was so nice to meet you today. Here's a summary of our visit1. Labs and stool testing today2. Prior to the 12/30 Stelara injection teaching appt: The night before take benadryl 50mg and repeat the day of injection. Take prednisone 20mg the day prior and the day of injection. 3. Schedule Stelara injection teaching, bring medication with you4. Schedule a follow up with Dr. Smith in [place] in 3 months5. More to come... Take Princess Coe NP Related to Crohn's disease of small intestine with intestinal obstruction 1. labs today 2. See if dermatology thinks this could be psoriasis3. May need to switch to Stelara as it helps with psoriasis4. I will check into the [place] staff to see who might be bestps talked w mom at end of day and dermatology has confirmed psoriasis today and agrees with need for Stelara Related to Crohn's disease of both small and lg int w intestinal obst - Labs and Remicde sury pan with next dose - watch for how she does in initial 10 days after infusion- IF not better and levels were good then it wont help to give more remicade and we will switch to Stelara-IF remicade levels were low and there's a sense that you get better briefly after infusion then we will try to bump up the drug levels with more frequent doses this spring Related to Crohn's disease of both small and large intestine with intestinal obstruction Infliximab IV per ac celerated protocol Patient will be refe rred to Pediatric surgery for ileocecectomy.If she continues to have tingling/numbness feelings in tips of her fingers, which persists despite ileocecectomy, she should be seen by Rheumatology.I have recommended to decrease the dose of prednisone to 60 mg today and after 2 days, to dropped to 40 mg daily. Will continue to slowly wean her down on the prednisone by 10 mg every 10 days.Family was understanding of the above did not have any further questions.Total time spent today was 54 minutes reviewing records, obtaining history, discussing long-term management, coordination of care and documentation. Related to Crohn's disease of both small and large intestine with intestinal obstruction Infliximab IV per ac celerated protocol 1. A request for jose roval of infliximab 10 mg/kg for induction as well as maintenance will be submitted to the insurance. She will be weaned off of prednisone once we have the approval to infuse Infliximab. 2. We will continue to follow the disease course through laboratory studies as well as clinical symptoms.3. She will be a candidate for repeat colonoscopy evaluation in about 4 to 5 months to assist the ileocecal valve. If she continues to have stenosis of the ileocecal valve, she will be referred to Pediatric Surgery to undergo an ileocecectomy procedure.Family voiced understanding of the above and did not have any further questions. Related to Crohn's disease of both small and large intestine with intestinal obstruction Infliximab IV per standard landy col. 1. Endoscopy and col onoscopy for further evaluation.2. Stool studies as outlined below.3. Followup will be dependent on the above testing.4. Family verbalized understanding of the above plan and had no additional questions. Related to Weight loss Assessments Type Assessment Date No Information Patient Care Teams Name Effective Dates (start - stop) Status Members No Information
[2025-08-10 20:41] VITALS: BP 115/82; PULSE 96; RESP 18; TEMP 36.3; O2SAT 96; BMI 20.5
--- NOTE | 2025-08-10 22:07 | ED.ABDPAIN ---
HPI - Abdominal Pain General Date Seen: 08/10/25 Chief Complaint: Abdominal Pain Stated Complaint: Pain in upper abdominal area Time Seen by Provider: 08/10/25 22:07 Source: patient and RN notes reviewed Mode of arrival: ambulatory Limitations: no limitations History of Present Illness HPI narrative: Jaclyn is a 19-year-old female with known history of Crohn's disease, status post ileocecectomy in 2022, history of iron deficiency anemia currently on Stelara who presents to the ED with abdominal discomfort increasing over the past month. Mom is present is very loving and supportive. She reports negative GI workups at [facility]. They come to emergency room in [place] for the 1st time for evaluation regarding more pain this evening. 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 She has also had abdominal surgeries. In the past month she has had more discomfort and has undergone an abdominal MRI as well as a gastric emptying study. She was told that both of these are normal and she is could not currently experiencing a Crohn's flare. All of this workup has been done with [facility]. They were told that the abdominal pain is not Crohn's. Unfortunately, they have not had clarification of why she continues to have discomfort. Patient has lost over 20 lb in the last month. Mom states that she cannot eat or drink and even water causes her to have abdominal upset. She continues to have loose bowels which is not unusual for her. There has been no blood in her stool. Again, very frustrated as they has not gotten the answers that they are seeking. Needed denies any fever or chills. She is pale but mom feels that this is her normal appearance and she did have some anemia and required iron transfusions greater than a month ago. Needed denies any possibility of . She does not use alcohol use tobacco. She denies any recent trauma. At home she tried oral Tylenol which did not seem and help her discomfort. Patient's mom notes that they are leaving [facility] because they are frustrated at lack of answers as well as with the inability to see the same provider every time. She does tell me about the gastric emptying studies and MRIs which were normal. They are currently scheduled to see Dr. Cadet from [facility] gastroenterology at the end of August. Patient did try acetaminophen and Zofran at home which did not help. I did explain to patient and her mother that we do not have inpatient GI here. From [facility] no from 07/21/2025. History: January 2022 patient diagnosed with Crohn's ileocolitis after presenting with weight loss diarrhea anemia fatigue and erythema nodosum. A colonoscopy at that time showed inflammation of the terminal call ileum with stenosis of the ileocecal valve as well as inflammation in the cecum and sigmoid colon June 08 colonoscopy showed improvement of the information October 2022 patient presented with small-bowel obstruction and underwent ileo cecectomy. Remicade had been started and resumed post surgery. Unfortunately she had a development of skin rashes no alopecia and drug-induced lupus. May 2024: Colonoscopy showed 2 aphthous ulcers at the ileocolonic at anastomosis. Nausea has increased over the last 8-9 months, abdominal pain in the gastric and hypogastrium in the midline has increased over the last month. Related Data Home Medications ?Medication ?Instructions ?Recorded ?Confirmed hydroxychloroquine 100 mg tablet 100 mg PO BID 08/10/25 08/10/25 loratadine 10 mg tablet (Claritin) 10 mg PO DAILY 08/10/25 08/10/25 nabumetone 500 mg tablet 500 mg PO BID 08/10/25 08/10/25 pregabalin .ROUTE 08/10/25 ustekinumab-auub 90 mg/mL 90 mg subcut Q8W 08/10/25 08/10/25 subcutaneous syringe (Wezlana) Allergies Allergy/AdvReac Type Severity Reaction Status Date / Time adhesive Allergy Severe Verified 08/10/25 20:52 latex Allergy Severe Verified 08/10/25 20:52 Review of Systems Status of ROS Reports: 10 or more systems reviewed and unremarkable except as noted in History and below Const Denies: fever or chills Eyes Denies: change in vision ENMT Denies: neck pain or nasal congestion Cardio Denies: chest pain or swelling of feet/ankles Resp Denies: cough GI Reports: abdominal pain, nausea and diarrhea (Chronic); Denies: vomiting, constipation or blood in stool Denies: painful urination Musculo Denies: neck pain Integ/Breast Denies: rash Exam Narrative: Exam Narrative: Alert and oriented. Pale in appearance but nontoxic. EOM is full. Face symmetrical. Oral cavity moist mucous membranes. Neck is supple without lymphadenopathy. Heart is with regular rate and rhythm and lungs are clear bilaterally. Abdomen is soft. No masses are palpated. Perhaps some very mild periumbilical tenderness. No pain with palpation in the right upper or right lower quadrant. No defects noted in the gabbi umbilical healed surgical wound. No rebound tenderness. Lower extremities without edema. Moving all extremities. Const: Vital Signs, click to edit/add: Vital Signs - 24 hr 08/10/25 20:41 08/10/25 23:33 Temperature 97.3 F L Pulse Rate 79 Pulse Rate [Pulse Oximeter] 96 Respiratory Rate 18 16 Blood Pressure 106/65 Blood Pressure [Ri ght Upper Arm] 115/82 Pulse Oximetry 96 98 Oxygen Delivery Me thod Room Air Room Air Documenting provider has reviewed patient's vital signs: yes Course Course ED Course: Differential diagnosis includes but is not limited to gastritis, Crohn's flare, constipation, intermittent hernia. Given the recent reassuring MRI as well as gastric emptying study and specialist opinion that this is not Crohn's, I have explained that the ER can be challenged with providing a 2nd opinion. I think it would be reasonable to do some labs including CBC, comprehensive, CRP, ESR, lipase, urinalysis as well as give some IV fluids, IV Zofran and some pain medication. I did speak briefly about the possibility of a CT but given patient's Crohn's disease 1 would want to limit radiation in somebody her age. I do not think that we should do a CT unless there was lab evidence of a significant abnormality. For pain will give IV Zofran. Patient really is supposed to avoid NSAIDs but we may have to do that tonight as I do not think the that it would be mantilla to use narcotics for pain control. Did state that we could try 1 dose of Toradol if the IV acetaminophen did not work. Reevaluation(s) Reevaluation #1: Reported to patient and her mom that hemoglobin is normal. Currently remaining labs are pending. Patient just received her IV acetaminophen . Update: Patient noted that with the ways of discomfort she had been feeling the pain seemed to be improved with the IV acetaminophen. Did offer Toradol but declining at this time. We also spoke about steroids but patient has had challenges with steroids in the past and would like to avoid them. Would strongly advise against any IV narcotics. Laboratory values have come back and are very reassuring with a normal white count, normal CRP, normal sed rate and lipase. Vital Signs Vital signs: Initial Vital Signs Temperature 97.3 F L 08/10/25 20:41 Temperature Source Temporal Artery Scan 08/10/25 20:41 Pulse Rate 96 08/10/25 20:41 Respiratory Rate 18 08/10/25 20:41 Blood Pressure 115/82 08/10/25 20:41 Blood Pressure Mean 93 08/10/25 20:41 Blood Pressure Position Sitting 08/10/25 20:41 Pulse Oximetry 96 08/10/25 20:41 Oxygen Delivery Method Room Air 08/10/25 20:41 Vital Signs Temperature 97.3 F L 08/10/25 20:41 Pulse Rate 96 08/10/25 20:41 Respiratory Rate 18 08/10/25 20:41 Blood Pressure 115/82 08/10/25 20:41 Pulse Oximetry 96 08/10/25 20:41 Oxygen Delivery Method Room Air 08/10/25 20:41 Temperature 97.3 F L 08/10/25 20:41 Pulse Rate 79 08/10/25 23:33 Respiratory Rate 16 08/10/25 23:33 Blood Pressure 106/65 08/10/25 23:33 Pulse Oximetry 98 08/10/25 23:33 Oxygen Delivery Method Room Air 08/10/25 23:33 Medications Administered Medications: Discontinued Medications Generic Name Dose Route Start Last Admin Trade Name Freq PRN Reason Stop Dose Admin Sodium Chloride 1,000 mls @ 1,000 mls/hr 08/10/25 22:50 08/11/25 00:23 0.9 % Sodium Chloride 1000 Ml IV 08/10/25 23:49 Infused .Q1H ROULA Infusion Acetaminophen 1,000 mg in 100 mls @ 400 mls/hr 08/10/25 22:49 08/10/25 23:42 Acetaminophen Inj IVPB 08/10/25 23:03 Infused ONCE ONE Infusion Ondansetron HCl 4 mg 08/10/25 22:49 08/10/25 23:18 Ondansetron 2 Mg/Ml Inj IVP 08/10/25 22:50 4 mg ONCE ONE Administration MDM - Abdominal Pain MDM Narrative Medical decision making narrative: 1. Abdominal pain-patient has known Crohn's disease but recent workup at [facility] including an abdominal MRI enterography as well as gastric emptying studies did not show any Crohn's flare or abnormality. Patient also had negative endoscopies on 04/17/2025 which according to reports was normal. At this time her treatment of normal saline and IV acetaminophen in the ED has been moderately helpful with reports of decreased pain with the waves of discomfort she had been experiencing. I did offer a 1 time dose of Toradol but they have declined. They are not interested in steroids at this time. I would advise against IV narcotics or oral narcotics in this patient with chronic discomfort and patient's mom agrees with this approach. Understandably Jaclyn and her mom are frustrated at not having answers. I did state that I am pleased that laboratory values were reassuring with a a ESR of 2 and negative CRP as well as normal white count. While abnormalities can occur even with normal labs, I advised against CT of the abdomen given the exam as well as reassuring lab values. Certainly with and normal MRI a few weeks ago I do believe that the risks of radiation in this young female outweigh any benefits that it would offer. My advice is to reach out to the new GI clinic and if that does not work follow-up with the old GI clinic to asks what next steps may be. They may wish to do gallbladder ultrasound, small-bowel follow-through, other abdominal studies that I a.m. not able to offer tonight. Vital signs are reassuring, electrolytes are normal, there is no indication of infection. If return to ED is necessary for fever, worsening pain, onset of new symptoms, I did state that I would be happy to see them in [place] but they may be better served going to a larger Medical Center with GI coverage availability. My advice in a true emergency is to go to the nearest facility. Lipase LFTs are negative and likely this does not represent pancreatitis or cholecystitis. Urinalysis without evidence of UTI. 2. History of anemia-hemoglobin reassuring tonight at 13.8. 3. Weight loss-mom notes 20 lb weight loss over the past month. Fortunately, no evidence of electrolyte alterations, elevation of LFTs, albumin abnormality. Normal saline and Zofran given in the ED tonight. If this is ongoing may need dietary consult and or further evaluation for nutrition supplementation. 4. Disposition-home at this time. Patient's vital signs and laboratory values reassuring. Declines Toradol, prednisone, narcotics. I have advised against CT of the abdomen given recent normal studies and reassuring labs and exam. If patient has worsening symptoms will need to return to the ER for further evaluation. Medical Records Attestation: I reviewed the patient's medical records. Medical records narrative: Notes from 07/21 at [facility] reviewed. Lab Data Attestation: I reviewed the patient's lab results. Labs: Lab Results 08/10/25 08/10/25 Range/Units 23:09 23:51 WBC 8.06 (4.50-11.00) K/uL RBC 4.83 (4.00-5.20) m/uL Hgb 13.8 (12.0-16.0) gm/dL Hct 42.4 (33.0-51.0) % MCV 88 (80-100) fL MCH 29 (26-34) pg MCHC 33 (32-36) gm/dL RDW Coeff of Fabian 15.8 H (11.5-15.5) % Plt Count 273 (140-440) K/uL Neut % (Auto) 76.9 H (42.0-72.0) % Lymph % (Auto) 15.5 L (20-44) % [place] % (Auto) 5.7 (0.0-11.0) % Eos % (Auto) 0.4 (0.0-7.0) % Baso % (Auto) 0.4 (0.0-3.0) % Neut # (Auto) 6.20 (1.7-7.0) K/uL Lymph # (Auto) 1.20 (0.90-2.90) K/uL [place]on # (Auto) 0.50 (0.00-0.90) K/UL Eos # (Auto) 0.03 (0.00-0.50) K/uL Baso # (Auto) 0.03 (0.00-0.30) K/uL Abs Immat Gran (auto) 0.09 (0.00-0.30) K/uL Imm/Tot Granulo (auto) 1.1 % ESR 2 (2-20) mm/hr Sodium 137 (135-149) mmol/L Potassium 4.0 (3.6-5.1) mmol/L Chloride 100 (96-114) mmol/L Carbon Dioxide 26 (20-32) mmol/L Anion Gap 11 (7-15) mEq/L BUN 10 (5-24) mg/dL Creatinine 0.6 (0.5-1.5) mg/dL Estimated Creat Clear 136.01 Estimated GFR 132 ml/min Glucose 91 (60-115) mg/dL Lactate 0.9 (0.5-1.9) mmol/L Calcium 9.3 (8.4-10.6) mg/dL Total Bilirubin 0.7 (0.1-1.5) mg/dL AST 25 (12-35) U/L ALT 9 (4-35) U/L Alkaline Phosphatase 60 (40-150) U/L C-Reactive Protein < 0.5 L (0.5-1.0) mg/dL Total Protein 6.7 (6.0-8.3) g/dL Albumin 4.2 (3.3-5.0) g/dL Lipase 68 (23-300) U/L Urine Color Yellow (Yellow) Urine Appearance Clear (Clear) Urine pH 6.5 (5.0-8.5) Ur Specific [place] 1.025 (1.000-1.030) Urine Protein 1+ A (Negative) Urine Glucose (UA) Negative (Negative) Urine Ketones Trace A (Negative) Urine Blood 1+ A (Negative) Urine Nitrite Negative (Negative) Urine Bilirubin Negative (Negative) Urine Urobilinogen 0.2 (0.2-1.0) Ur Leukocyte Esterase Negative (Negative) Urine RBC 0-2 (0-2) Urine WBC 0-2 (0-5) Ur Squamous Epith Cells Few (None-Few) Urine Bacteria Few A (None) Urine Mucus Moderate A (None) Discharge Plan Discharge Clinical Impression: Abnormal weight loss Abdominal pain Qualifiers: Abdominal location: unspecified location Qualified Code(s): R10.9 - Unspecified abdominal pain Crohn disease Qualifiers: Gastrointestinal tract location: small and large intestine Digestive disease complication type: unspecified complication Qualified Code(s): K50.819 - Crohn's disease of both small and large intestine with unspecified complications Patient Disposition: Home, Self-Care Condition: Improved Additional Instructions: Recommend continuing bland foods and trying to push fluids. Follow-up with your new GI physician clinic to see if they can expedite your appointment. Alternatively, ask [facility] what they think your next step should be for ongoing pain and weight loss. They may consider ultrasound of the gallbladder, endoscopies, small-bowel follow-through or other test. Seek medical attention for worsening symptoms especially with fever, persistent vomiting, bulging in the abdomen, inability to stool. Prescriptions: No Action hydroxychloroquine 100 mg tablet 100 mg PO BID loratadine [Claritin] 10 mg tablet 10 mg PO DAILY nabumetone 500 mg tablet 500 mg PO BID pregabalin [Lyrica CR] .ROUTE Wezlana 90 mg/mL syringe 90 mg subcut Q8W Follow Up/Referrals: Krishna Haney MD [Primary Care Provider, Family Practice] Stand Alone Forms: [email or web address] Info Instructions
[2025-08-10] MEDS: ONDANSETRON 2 MG/ML inj 4 MG IVP (23:18)
[2025-08-10] MEDS: ACETAMINOPHEN INJ 1,000 MG/100 ML VIAL 400 MG IVPB (23:26)
[2025-08-10 23:28] LABS: Lactate* 0.9 mmol/L (0.5-1.9)
[2025-08-10 23:31] LABS: Hematocrit* 42.4 % (33.0-51.0); Hemoglobin* 13.8 gm/dL (12.0-16.0); Immature Granulocytes Abs Auto 0.09 K/uL (0.00-0.30); Immature Granulocytes Pct Auto 1.1 %; Mean Corpuscular HGB Conc 33 gm/dL (32-36); Mean Corpuscular Hemoglobin 29 pg (26-34); Mean Corpuscular Volume 88 fL (80-100); RDW Coefficient of Variation % 15.8 % (11.5-15.5); Red Blood Count* 4.83 m/uL (4.00-5.20); White Blood Count* 8.06 K/uL (4.50-11.00)
[2025-08-10 23:33] VITALS: BP 106/65; PULSE 79; RESP 16; O2SAT 98
[2025-08-10 23:35] LABS: Lymphocytes Absolute Auto 1.20 K/uL (0.90-2.90); Slide Review Reflex No
[2025-08-10 23:48] LABS: Albumin* 4.2 g/dL (3.3-5.0); Chloride* 100 mmol/L (96-114); Potassium* 4.0 mmol/L (3.6-5.1); Sodium* 137 mmol/L (135-149)
[2025-08-10 23:50] LABS: Blood Urea Nitrogen* 10 mg/dL (5-24); Creatinine* 0.6 mg/dL (0.5-1.5); Est. Creatinine Clearance* 136.01; Estimated Glomerular Filt Rate 132 ml/min
[2025-08-10 23:51] LABS: Alanine Aminotransferase* 9 U/L (4-35); Alkaline Phosphatase* 60 U/L (40-150); Anion Gap 11 mEq/L (7-15); Aspartate Amino Transferase* 25 U/L (12-35); Bilirubin Total* 0.7 mg/dL (0.1-1.5); Calcium* 9.3 mg/dL (8.4-10.6); Carbon Dioxide* 26 mmol/L (20-32); Glucose* 91 mg/dL (60-115); Total Protein* 6.7 g/dL (6.0-8.3)
[2025-08-11 00:02] LABS: Appearance Urine Clear (Clear)
[2025-08-11 00:12] LABS: Erythrocyte SedimentationRate* 2 mm/hr (2-20)
--- OUTSIDE RECORDS SUMMARY | 2025-08-11 00:30 | XMS_ITS | Clinical Summary ---
Author Organization [facility] Address [address] [place] [address] Care Team Providers Care Floor Framer Name Role Phone Krishna Haney MD Primary Care Provider Allergies Active Allergy Reactions Criticality Noted Date Comments Amoxicillin Rash Medium 10/25/2021 Brother reacted and so no other siblings have had this medication Latex Rash 07/10/2022 Medications EPINEPHrine (EPIPEN) 0.3 mg/0.3 mL auto-injector PLEASE SEE ATTACHED FOR DETAILED DIRECTIONS 03/12/20 23 Active loratadine (Claritin) 10 mg tablet Take 10 mg by mouth once daily. 02/01/20 23 Active ondansetron (ZOFRAN) 4 mg tablet Take by mouth. 06/09/20 24 Active hydroxychloroquine (PLAQUENIL) 200 mg tablet TAKE 1.5 TABLETS BY MOUTH ONCE A DAY FOR 90 DAYS Active Wezlana 90 mg/mL subcutaneous syringe Inject 1 mL subcutaneous every 8 weeks. 05/01/20 25 Active pregabalin (LYRICA) 50 mg capsuleIndications :Chronic joint pain Take 1 Capsule (50 mg) by mouth two times daily. 60 Capsule 2 08/04/20 25 Active triamcinolone (ARISTOCORT; KENALOG) 0.1 % creamIndications:R anastacia Apply topically to affected area(s) two times daily. 30 g 3 08/04/20 25 Active Stelara 90 mg/mL syrg Inject 1 mL subcutaneous every 8 weeks. 11/30/19 24 025 Discontin ued(*Med complete/ Regimen complete/ Level of care change) azaTHIOprine (IMURAN) 50 mg tablet Take 50 mg by mouth once daily. 025 Discontin ued(*Med complete/ Regimen complete/ Level of care change) colestipoL (COLESTID) 1 gram tablet Take by mouth once daily. 04/02/20 24 025 Discontin ued(*Med complete/ Regimen complete/ Level of care change) fludrocortisone (FLORINEF) 0.1 mg tabletIndications: Orthostatic lightheadedness Take 1 Tablet (0.1 mg) by mouth once daily. 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 [address] [place] [address] Arielle Torres PA Crohn's disease of both small and large intestine without complications (HC); Nausea; Iron deficiency anemia, unspecified 08/06/2025 Travel 08/04/2025 4:10 PM AREA DEVELOPMENT MANAGER Office Visit [facility] [id number] [place] [address] Krishna Haney MD Well Child 08/04/2025 Travel 07/30/2025 Travel 07/23/2025 Transcribe Orders [facility] [place] [phone] Arielle Torres PA 07/17/2025 Telephone [facility] [address] [place] [address] Krishna Haney MD Referral from Last 3 Months Immunizations Immunization Administration Dates Next Due COVID-19 vaccine (Pfizer-Bio NTech 30mcg/0.3mL) [place] 09/26/2021,02/18/2021,01/27/2021 Family History Medical History Relation Name Comments Good Health Brother x 3 Good Health Father Other Maternal Grandfather acciden t - @ 36 Addiction problem Maternal Grandmother Bipolar disorder Maternal Grandmother d @ 58 Celiac disease Mother Unknown Paternal Grandfather Pneumonia Paternal Grandmother Relation Name Status Comments Brother x 3 Alive Father Alive Maternal Grandfather Maternal Grandmother Mother Alive Paternal Grandfather Paternal Grandmother Social History Tobacco Use Types Packs/Day Years Used Date Smoking Tobacco: Never Smokeless Tobacco: Never Tobacco Cessation:Counseling Given: Yes Comments:No second hand exposure Alcohol Use Standard Drinks/Week Comments No 0 (1 standard drink = 0.6 oz pur e alcohol) PHQ-2 Answer Date Recorded PHQ-2 TOTAL SCORE 0 08/04/2025 Social Connections Answer Date Recorded Do you often feel lonely or isolated from those around you? 0 07/30/2025 Alcohol Use Answer Date Recorded How often do you have a drink containing alcohol ? 0 08/04/2025 How many drinks containing a lcohol do you have on a typical day when you are drinking? 0 08/04/2025 How often do you have five or more drinks on one occasion? 0 08/04/2025 Financial Resource Strain Answer Date R ecorded Difficulty of Paying Living Expenses 1 07/30/2025 Difficulty of Paying Living Expenses 2 07/30/2025 Food Insecurity Answer Date Recorded Do you worry your food will run out before you are able to buy more? 1 07/30/2025 Transportation Needs Answer Date Record ed Does lack of transportation keep you from medica l appointments? 1 07/30/2025 Does lack of transportation keep you from work, meetings or getting things that you need? 1 07/30/2025 Housing Stability Answer Date Recorded What is your housing situation today? 1 07/30/2025 Utilities Answer Date Recorded Do you have trouble paying f or utilities (for example, heat, electricity, water, phone)? 1 07/30/2025 Comments No Sex and Gender Information Value Date Recorded Sex Assigned at Not on file Legal Sex Female 10:16 AM AREA DEVELOPMENT MANAGER Gender Identity Not on file Sexual Orientation Not on file Occupation Industry Job Start Date Job End Date [employer] Not on file Not on file Not on f ile Obstetrics History Last Filed Vital Signs Vital Sign Reading Time Taken Comments Blood Pressure 110/60 08/04/2025 4:31 PM AREA DEVELOPMENT MANAGER Pulse 76 08/04/2025 4:31 PM AREA DEVELOPMENT MANAGER Temperature 37.4 C (99.4 F) 08/02/2023 4:07 PM AREA DEVELOPMENT MANAGER Respiratory Rate 20 08/26/2024 11:45 AM AREA DEVELOPMENT MANAGER Oxygen Saturation 98% 08/26/2024 11:45 AM AREA DEVELOPMENT MANAGER Inhaled Oxygen Concentration - - Weight 57.6 kg (127 lb) 08/04/2025 4:31 PM AREA DEVELOPMENT MANAGER Height 165.7 cm (5' 5.25) 08/04/2025 4:31 PM CS T Body Mass Index 20.97 08/04/2025 4:31 PM AREA DEVELOPMENT MANAGER Plan of Treatment Health Maintenance Due Date Last Done Comments HPV series for age 9-45 (1 - Risk 3-dose series) 2015 Tetanus booster 2015 HIV for age 15-65 2019 Hepatitis C screening for age 18-79 2022 Hepatitis B series for 19+ (1 of 3 - 19+ 3-dose series) 2023 Influenza Vaccine (#1) 2025 BMI (ht and wt on same day) for age 18+ 08/04/2026 08/04/2025, 08/26/2024, 12/26/2023, Additional history exists Depression screening for age 12+ 08/04/2026 08/04/2025, 08/02/2023, 10/28/2021, Additional history exists Well Child Check for age 3-20 08/04/2026 08/04/2025, 10/25/2021, 08/20/2018 RSV vaccine for adults or (1 - 1-dose 75+ series) 2079 Meningococcal series for age 11-21 Aged Out No longer eligible based on patient's age to complete this topic Pneumococcal series for age 6-49 Aged Out No longer eligible based on patient's age to complete this topic Procedures Procedure Name Priority Date/Time Associated Diagnosis Comments NM GASTRIC EMPTYING Routine 08/06/2025 1 2:55 PM AREA DEVELOPMENT MANAGER Crohn's disease of both small and large intestine without complications (HC) Nausea Iron deficiency anemia, unspecified AMB CONSULT TO GASTROENTEROLOGY Routine 07/21/2025 7:59 PM AREA DEVELOPMENT MANAGER from Last 3 Months Results * NM GASTRIC EMPTYING (08/06/2025 12:55 PM AREA DEVELOPMENT MANAGER) Anatomical Region Laterality Modality STOMACH, Abdomen Nuclear Medicin e 08/06/2025 12:5 5 PM AREA DEVELOPMENT MANAGER Impressions 08/06/2025 1:16 PM AREA DEVELOPMENT MANAGER Normal gastric emptying. Narrative 08/06/2025 1:16 PM AREA DEVELOPMENT MANAGER For Patients: As a result of the Cures Act, medical imaging exams and procedure reports are released immediately into your electronic medical record. You may view this report before your referring provider. If you have questions, please contact your health care provider. EXAM: NM GASTRIC EMPTYING LOCATION: [facility] MEDICAL IMAGING DATE: 08/06/2025 INDICATION: Abdominal pain. COMPARISON: Abdominal MRI 08/06/2025. TECHNIQUE: Tc-99m SC 1.0 mCi labeled product, PO. Anterior and posterior planar imaging for four hours. Geometric mean of emptying/retention calculated. FINDINGS: The stomach is scintigraphically normal. No evidence of gastroesophageal reflux. PATIENT'S RETENTION: 1 hour = 85%, 2 hours = 58%, 4 hours = 1% NORMAL RETENTION: 1 hour = 30-90%, 2 hours = <60%, 4 hours = <10% Procedure Note Maria Teresa Finney MD - 08/06/2025 For Patients: As a result of the Cures Act, medical imagingexams and procedure reports are released immediately into your electronicmedical record. You may view this report before your referring provider.If you have questions, please contact your health care provider. EXAM: NM GASTRIC EMPTYING LOCATION: [facility] MEDICAL IMAGING DATE: 08/06/2025 INDICATION: Abdominal pain. COMPARISON: Abdominal MRI 08/06/2025. TECHNIQUE: Tc-99m SC 1.0 mCi labeled product, PO. Anterior and posteriorplanar imaging for four hours. Geometric mean of emptying/retentioncalculated. FINDINGS: The stomach is scintigraphically normal. No evidence ofgastroesophageal reflux. PATIENT'S RETENTION: 1 hour = 85%, 2 hours = 58%, 4 hours = 1% NORMAL RETENTION: 1 hour = 30-90%, 2 hours = <60%, 4 hours = <10% IMPRESSION: Normal gastric emptying. 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
--- OUTSIDE RECORDS SUMMARY | 2025-08-11 00:30 | XMS_ITS | Encounter Summary ---
Author Organization [facility] Address [address] [place] [address] Care Team Providers Care Paint Pourer Name Role Phone Macho Haney MD Primary Care Provider [phone] Nohemy Penaloza MD Unavailable [phone] Reason for Referral * Consultation (Routine: Next available opening) - Referral NOT Required Specialty Diagnoses / Procedures Referred By Viviane watt Referred To Contact Gastroenterology Diagnoses Crohn's disease of both small and large intestine without complication (H) [place] [address] [place] [address] Phone: tel: fax: Sophie Wellington MD [address] [place] [address] Phone: tel: fax: Referral ID Status Reason Start Date Expiration Date V isits Requested Visits Authorized [id number] Referral NOT Required 07/20/2025 07/20/2026 1 1 Scheduling Instructions Refer to Dr Sophie Wellington Question Answer Reason for Referral: Inflammatory Bowel Disease Scheduling Instructions: [facility] will call you to coordinate your care as prescribed by the provider. If you don t hear from a sales service representative within 12 business days, please call . Additional Information: Refer to Dr Sophie Wellington for Crohns disease of both small and large intestine w/out complication. Comments [facility] External Fax Details Provider: Krishna Haney Affiliated with: [facility] Location: [place] Phone number: [phone] Fax number: [phone] [place] Patient: No Medical records received with referral? No, Referral only [facility] will call you to coordinate your care as prescribed by the provider. If you don t hear from a sales service representative within 12 business days, please call . RATORY DIRECTOR Encounter Details Date Type Department Care Team (Latest Contact Info) Description 07/20/2025 Transcribe Orders GENERIC EXTERNAL [place] [address] [place] [address] Crohn's disease of both small and large intestine without complication (H) (Primary Dx) Social History Tobacco Use Types Packs/Day Years Used Date Smoking Tobacco: Never Smokeless Tobacco: Never Adolescent Education Answer Date Record ed Getting School Help Needed Not on file 06/09 Comments No Sex and Gender Information Value Date Recorded Sex Assigned at Not on file Legal Sex Female 1:09 PM CDT Gender Identity Not on file Sexual Orientation Not on file documented as of this encounter Plan of Treatment Upcoming Encounters Date Type Department Care Team (Late st Contact Info) Description 09/15/2025 PRE VISIT [facility] Gastroenterology Clinic [address] [address] Sophie Wellington MD [address] [place] [address] [phone] Previsit 09/15/2025 1:00 PM LABORATORY DIRECTOR Office Visit [facility] Gastroenterology Clinic [address] [address] [place] [address] [place] [address] Sophie Wellington MD [address] [place] [phone] Scheduled Referrals Name Type Priority Associated Diagnoses Orde r Schedule Adult GI Industrial/Organizational Psychologist Referral - Consult Only Referral Routine: Next available opening Crohn's disease of both small and large intestine without complication (H) Expected: 07/20/2025 (Approximate), Expires: 07/20/2026 documented as of this encounter Visit Diagnoses Diagnosis Crohn's disease of both small and large intestine without complication (H)- [facility] enteritis of small intestine with large intestine documented in this encounter Care Teams Paint Pourer Relationship Specialty Start Date End Date Macho Haney MD [facility] [id number] [place] [address] PCP - General 01/17/23 Nohemy Penaloza MD [address] [place] [address] Assigned Neuroscience Provider 09/08/24 documented as of this encounter
--- OUTSIDE RECORDS SUMMARY | 2025-08-11 00:30 | XMS_ITS | Clinical Summary ---
Author Organization [place] Address [facility] [place] [address] Care Team Providers Care Asbestos Surveyor Name Role Phone Macho Haney MD Primary Care Provider [phone] Nohemy Penaloza MD Unavailable [phone] Sophie Wellington MD Unavailable [phone] Krishna Haney MD Unavailable [phone] Allergies No known active allergies Medications Iron-Vitamin C (IRON 100/C) 100-250 MG TABS Acti ve inFLIXimab Inject into the vein once Active Encounters Date Type Department Care Team Description 07/20/2025 Transcribe Orders GENERIC EXTERNAL DATA DEPARTMENT Krishna Haney MD Crohn's disease of both small and large intestine without complication (H) (Primary Dx) from Last 3 Months Social History Tobacco Use Types Packs/Day Years Used Date Smoking Tobacco: Never Smokeless Tobacco: Never Tobacco Cessation:Counseling Given: Not Answered Adolescent Education Answer Date Record ed Getting School Help Needed Not on file 06/09 Comments No Sex and Gender Information Value Date Recorded Sex Assigned at Not on file Legal Sex Female 1:09 PM CDT Gender Identity Not on file Sexual Orientation Not on file Last Filed Vital Signs Vital Sign Reading Time Taken Comments Blood Pressure 117/74 08/19/2024 2:58 PM ENGINEERING SPECIALIST TECHNICIAN Pulse 81 08/19/2024 2:58 PM ENGINEERING SPECIALIST TECHNICIAN Temperature - - Respiratory Rate 16 08/19/2024 2:58 PM ENGINEERING SPECIALIST TECHNICIAN Oxygen Saturation 98% 08/19/2024 2:58 PM ENGINEERING SPECIALIST TECHNICIAN Inhaled Oxygen Concentration - - Weight 68 kg (150 lb) 01/17/2023 2:20 PM CDT Height 165.1 cm (5' 5) 01/17/2023 2:20 PM CDT Body Mass Index 24.96 01/17/2023 2:20 PM CDT Plan of Treatment Upcoming Encounters Date Type Department Care Team (Late st Contact Info) Description 09/15/2025 PRE VISIT [facility] Gastroenterology Clinic [address] [phone] Sophie Wellington MD [address] [place] [phone] Previsit 09/15/2025 1:00 PM ENGINEERING SPECIALIST TECHNICIAN Office Visit [facility] Gastroenterology Clinic [address] [phone] [place] [address] [place] [address] Sophie Wellington MD [address] [place] [address] [phone] Health Maintenance Due Date Last Done Comments ADVANCE CARE PLANNING 2004 ANNUAL REVIEW OF HM ORDERS 2004 CHLAMYDIA SCREENING 2004 DTAP/TDAP/TD VACCINE (1 - Tdap) 2011 HIV SCREENING 2019 HPV VACCINE (1 - 3-dose series) 2019 MENINGITIS B VACCINE (1 of 2 - Standard) 2020 HEPATITIS C SCREENING 2022 YEARLY PREVENTIVE VISIT 10/25/2022 10/25/2021 HEPATITIS B VACCINE (1 of 3 - 19+ 3-dose series) 2023 PNEUMOCOCCAL VACCINE: PEDIATRICS (0 to 5 YEARS) AND AT-RISK PATIENTS (6 to 49 YEARS) (1 of 2 - PCV) 2023 ZOSTER VACCINE (1 of 2) 2023 PHQ-2 (once per calendar year) 2024 COVID-19 VACCINE (2024-2 6 season) 2025 09/26/2021, 02/18/2021, 01/27/2021 INFLUENZA VACCINE (#1) 2025 MENINGITIS VACCINE Aged Out No longer eligible based on patient's age to complete this topic Insurance [employer] Care Teams Asbestos Surveyor Relationship Specialty Start Date End Date Macho Haney MD [facility] [place] [address] PCP - General 01/17/23 Nohemy Penaloza MD [address] [place] [address] Assigned Neuroscience Provider 09/08/24 Sophie Wellington MD [address] [place] [address] [phone] Gastroenterology 07/31/25 [place] [address] [place] [address] MD Family Medicine 07/31/25
--- OUTSIDE RECORDS SUMMARY | 2025-08-11 00:30 | XMS_ITS | Clinical Summary ---
Author Organization [facility] Address [address], [place] [address] Care Team Providers Care Production Line Operator Name Role Phone Unavailable Primary Care Provider Unavailabl e Source Comments You are receiving this document as you are listed as the primary care provider,follow-up provider, or the patient has been referred to you for consultation.This is in compliance with the Medicare andCommunity Regional Medical Centercaid EHR Incentive Program,which states Providers who transition their patient to another setting of careor provider of care or refers their patient to another provider of care shouldprovide summary care record for each transition of care or referral. [facility] Active Allergy Reactions Criticality Noted Date Comments Latex Rash 07/10/2022 Review Food Intolerance 11/27/2006 PN: LW FI1: lactose intolerant Medications acetaminophen (AKA TYLENOL) 80 MG chewable tablet Take by mouth as needed. LW Addl Instr:Children : 10-15 mg/kg/dose. Maximum 720 mg/day for age 3-6, 2600 mg/day for age 6-12 30 1 Active ibuprofen (AKA ADVIL,MOTRIN) 100 MG chewable tablet Chew and swallow 1 Tablet (100 mg) by mouth as needed (Take 1 tablet by mouth as needed.). 1 Active omega-3 fatty acids (FISH OIL) 1000 MG capsule Take by mouth. 1 Active Multiple Vitamins-Minera ls (MULTIVITAMINS) CHEW Chew and swallow 1 Tablet by mouth daily. 1 Active DIMETHICONE EX Apply topically. 2 Active azaTHIOprine (IMURAN) 50 MG tablet Take by mouth. Activ e colestipol (COLESTID) 1 g tablet Take by mouth. 4 Active hydroxychloroqu ine (PLAQUENIL) 200 MG tablet TAKE 1.5 TABLETS BY MOUTH ONCE A DAY FOR 90 DAYS Active drug not in computer Pt takes stellara Active ALBUterol sulfate HFA 108 (90 Base) MCG/ACT inhalerIndicati ons:COVID Inhale 2 Puffs every 4 hours as needed for Wheezing or Shortness of Breath. Inhale 2 puffs by mouth every 4 hours as needed for Inhaler Use Indications: wheezing, shortness of breath, and coughing spells. Shake well before use. Do not exceed 12 puffs in 24 hours. 1 Each 4 Active Active Problems Problem Noted Date Diagnosed Date Routine child health exam 09/28/2011 Vaccine refused by parent 09/28/2011 Lactose intolerance 09/28/2011 Resolved Problems Problem Noted Date Diagnosed Date Resolved Date Plantar wart of left foot 05/31/2011 Encounters Date Type Department Care Team Description 05/28/2025 10:05 AM CDT Ancillary Procedure [facility] [address] [place] [address] Tiffanie Husain MD Right foot pain 05/28/2025 10:00 AM CDT Office Visit [facility] [address] [place] [address] Tiffanie Husain MD Right foot pain; Contusion of fifth toe from Last 3 Months Social History Tobacco Use Types Packs/Day Years Used Date Smoking Tobacco: Never Smokeless Tobacco: Never Alcohol Use Standard Drinks/Week Comments Never 0 (1 standard drink = 0.6 oz pur e alcohol) Comments No Sex and Gender Information Value Date Recorded Sex Assigned at Not on file Legal Sex Female 11:07 PM CDT Gender Identity Not on file Sexual Orientation Not on file Last Filed Vital Signs Vital Sign Reading Time Taken Comments Blood Pressure 112/75 05/28/2025 9:54 AM CDT Pulse 89 05/28/2025 9:54 AM CDT Temperature 36.7 C (98 F) 07/18/2024 3:14 PM CDT Respiratory Rate 14 05/28/2025 9:54 AM CDT Oxygen Saturation 100% 05/28/2025 9:54 AM CDT Inhaled Oxygen Concentration - - Weight 48 kg (105 lb 12.8 oz) 02/09/2022 9:12 AM CDT Height 166.4 cm (5' 5.5) 02/09/2022 9:12 AM CD T Body Mass Index 17.34 02/09/2022 9:12 AM CDT Plan of Treatment Health Maintenance Due Date Last Done Comments Chlamydia 2004 Hep C Screening (Preventive Services) 2004 MenB Immunization Discussion 2004 HPV Vaccine (1 - 3-dose series) 2019 HIV Screening (Preventive Services) 2020 Adult Preventive Visit 2022 DTaP/Tdap/Td Vaccine (1 - Tdap) 2023 HepB Vaccine (1) 2023 COVID-19 Vaccine (4 - 2024-2 6 season) 2025 09/26/2021, 02/18/2021, 01/27/2021 Influenza Vaccine (#1) 2025 Zoster/Shingles Vaccine (1 o f 2) 2054 HepA Vaccine Aged Out No longer eligi ble based on patient's age to complete this topic Hib Vaccine Aged Out No longer eligi ble based on patient's age to complete this topic IPV (Polio) Vaccine Aged Out No longe r eligible based on patient's age to complete this topic MCV4 Vaccine Aged Out No longer eligi ble based on patient's age to complete this topic Pneumococcal Vaccine Aged Out No long er eligible based on patient's age to complete this topic Procedures Procedure Name Priority Date/Time Associated Diagnosis Comments XR FOOT RT 3+ VIEWS STAT 05/28/2025 1 0:10 AM CDT Right foot pain from Last 3 Months Results * XR Foot Rt 3+ Views (05/28/2025 10:10 AM CDT) Anatomical Region Laterality Modality Lower Extremity, Foot Digital Ra diography Narrative 05/28/2025 10:15 AM CDT EXAM: XR FOOT RT 3+ VIEWS INDICATION: dropped a water bottle on her foot right 5th toe pain COMPARISON: None. FINDINGS: Bony structures of the right foot are normal. Joint spaces appear within normal limits. There is no dislocation or significant degenerative change. Signed by: Steve Lozoya 05/28/2025 10:15 AM Procedure Note Steve Lozoya MD - 05/28/2025 EXAM: XR FOOT RT 3+ VIEWS INDICATION: dropped a water bottle on her foot right 5th toe pain COMPARISON: None. FINDINGS: Bony structures of the right foot are normal. Joint spaces appear withinnormal limits. There is no dislocation or significant degenerativechange. Signed by: Steve Lozoya 05/28/2025 10:15 AM us Tiffanie Husain MD RAD GD Final Result from Last 3 Months Insurance [facility] [place] [id number]
== END 2025-08-11 01:04 | disposition home or self-care (01) ==
PROVIDERS: Emergency Provider Family Medicine; PCP Family Medicine
DX: R10.10 Upper abdominal pain, unspecified (principal); R63.4 Abnormal weight loss; K50.819 Crohn's disease of both small and large intestine with unspecified complications
CPT/HCPCS: 36415; 80053; 81001; 83605; 83690; 85025; 85651; 86140; 87086; 96361; 96374; 99284; J0131; J2405; J7030